=== PATIENT | female | born 1980 | race Caucasian/White ===

== ENCOUNTER 2018-07-03 16:22 | Outpatient (CLI) | payer OTHER, SELFPAY ==
[2018-07-03 18:21] LABS: TSH (W/Ref FT4) 0.85 uIU/mL (0.358-3.74)
[2018-07-03 20:52] LABS: *AMPHETAMINES SCREEN URINE Negative (Negative); *BARBITURATES SCREEN URINE Negative (Negative); *BENZODIAZEPINES SCREEN URINE Negative (Negative); Cannabinoids THC Negative (Negative); Cocaine Screen,Urine Negative (Negative); METHADONE URINE SCREEN Negative (Negative); OPIATES URINE SCREEN Negative (Negative)
[2018-07-03 20:59] LABS: Tricyclic Antidepressants Negative (Negative)
[2018-07-05 16:26] LABS: Chlamydia Result Negative; GC Result Negative; Specimen Description CERVIX
[2018-07-08 09:09] LABS: Buprenorphine Negative; Norbuprenorphine Negative
== END 2018-07-03 16:42 ==
PROVIDERS: PCP Family Medicine; Visit Provider Advanced Practice Midwife
DX: Z34.91 Encounter for supervision of normal pregnancy, unspecified, first trimester (principal); Z11.3 Encounter for screening for infections with a predominantly sexual mode of transmission
CPT/HCPCS: 36415; 80307; 87491; 87591; 84443; 87086

== ENCOUNTER 2018-08-19 08:59 | Outpatient (CLI) | payer OTHER, SELFPAY ==
[2018-08-22 11:16] LABS: AFP 42.5 ng/mL; Cigarette smoking status non-smoker; GA used in risk estimate Scan estimate; INHIBIN 747 pg/mL; IVF Pregnancy No; Initial or repeat testing Initial testing; Insulin dependent diabetes No; Maternal Weight 143 lbs; Number of Fetuses 1; Physician Phone Number 802-748-7300; Prev Down(T21)/Trisomy Pregnan No; Prev Pregnancy w/NTD No; hCG, TOTAL 105.4 IU/mL; hCG, TOTAL MoM 4.26 MoM; uE3 1.56 ng/mL; uE3 MoM 1.24 MoM
[2018-08-29 05:27] LABS: Result Summary NEGATIVE; Specimen WB Whole Blood
== END 2018-08-19 09:19 ==
PROVIDERS: PCP Family Medicine; Visit Provider Obstetrics & Gynecology
DX: Z34.91 Encounter for supervision of normal pregnancy, unspecified, first trimester (principal); Z13.228 Encounter for screening for other metabolic disorders; Z36.89 Encounter for other specified antenatal screening
CPT/HCPCS: 36415; 81511; 81220

== ENCOUNTER 2018-10-25 00:45 | Outpatient (CLI) | payer OTHER, SELFPAY ==
--- NOTE | 2018-10-25 10:51 | DI.US_ITS ---
SYMPTOM/DIAGNOSIS: GROWTH, PLACENTA LOCATION Z34.90 The examination was carried out according to the usual protocol and reveals polyhydramnios with a four quadrant examination recording a 28.3 cm The fetus is in varying position. A 4-chamber heart is noted. The stomach, bladder and umbilical cord are intact. The cord insertion is unremarkable. The cardiac rate is 147 beats per minute. The estimated weight is 1067 grams which is at the 47th percentile. The age is 27 weeks 3 days. SUMMARY: Polyhydramnios is demonstrated. There is no definite anomaly or evidence of growth retardation. This result was faxed to Dr. Hollins immediately following completion of the examination. Many abnormalities cannot be diagnosed. A normal exam does not exclude a congenital anomaly. Radiology No. [id number] LMP: Exam Date: 10/25/18 [facility] wks days on EDC ([facility]) 01/23/19 Confirmed: HISTORY: GROWTH, PLACENTA LOCATION PREDICTED GESTATIONAL AGE NUMBER 27 +1 weeks with a range of 26 +1 week to 28 +1 weeks. 1 Determined by___1STUS___LMP__XX_HISTORY Info. pertaining to fetus # PLACENTA PRESENTATION Grade II Cephalic___ Anterior___Posterior___ Breech____ Right Left Transverse(head right___ Fundal_XX__Low-lying___Previa___ Transverse(head left___ Varying___X___ BIOMETRY AMNIOTIC FLUID BPD: 70 mm 28 +1 weeks Polyhydramnios HC: 250 mm 27 +1 weeks AC: 233 mm 27 +5 weeks FL: 50 mm 26 +6 weeks AMNIOTIC FLUID INDEX >26 WK CRL: mm weeks Cisterna Magna: mm CI: 84 RUQ:__8.99____LUQ__5.96 Cerebellum: cm EFW: 1067 grams 47% Percentile RLQ:__8.04____LLQ__5.31 Total:_28.3_cms Composite AGE= 27 +3 wks EDC by US___01/21/19 BIOPHYSICAL PROFILE ANATOMY IDENTIFIED SCORE 0/2 Heart: 4-Chamber__XX_Rate:BPM__147___ LVOT: RVOT: Amniotic Fluid(>2cms)____ Stomach:__XX Kidneys:__XX Respirations (>30 secs) Bladder:___XX Post. Fossa: Body Flex/Extension 3 vessel cord:_XX Ventricles: cord insertion:__XX___ Lips:____ Extremity Flex/Extension spinal morphology: Nose: Total Score= Palate: NS=not seen
== END 2018-10-25 01:05 ==
PROVIDERS: PCP Family Medicine; Visit Provider Obstetrics & Gynecology
DX: O40.2XX1 Polyhydramnios, second trimester, fetus 1 (principal); Z34.92 Encounter for supervision of normal pregnancy, unspecified, second trimester
CPT/HCPCS: 76816

== ENCOUNTER 2018-10-31 02:28 | Outpatient (CLI) | payer OTHER, SELFPAY ==
[2018-10-31 08:53] LABS: Abs Immature Grans 0.13 k/cumm (0.0-0.09); Absolute Basophil Count 0.03 k/cumm (0.0-0.2); Absolute Eosinophil Count 0.06 k/cumm (0.0-0.7); Absolute Lymphocyte Count 1.64 k/cumm (1.2-3.4); Absolute Monocyte Count 0.82 k/cumm (0.11-0.7); Absolute Neutrophil Count 7.61 k/cumm (1.2-6.7); Basophils % 0.3; Eosinophils % 0.6; HCT 29.4 % (36.0-46.0); HGB 9.7 g/dL (12.0-15.5); Immature Grans % 1.3; Lymphocytes % 15.9; Mean Corpuscular Hemoglobin 28.9 pg (27.0-33.0); Mean Corpuscular Volume 87.5 fL (80-95); Mean Platelet Volume 9.6 fL (8.0-11.0); Neutrophils % 73.9; Platelet Count 343 x1000/uL (130-400); RBC 3.36 m/cumm (4.00-5.20); RBC Distribution Width 12.8 % (11.7-14.6); White Blood Cell Count 10.29 k/cumm (4.4-10.8)
[2018-10-31 09:07] LABS: Glucose,1 Hr (Glucola) 117 mg/dL (80-140)
[2018-10-31 09:09] LABS: Diff Comment Diff Reviewed; Hypochromasia 2+
[2018-10-31 09:11] LABS: Poikilocytes 1+
[2018-10-31 10:37] LABS: TSH (W/Ref FT4) 2.19 uIU/mL (0.358-3.74)
[2018-11-01 11:49] LABS: Hepatitis B Surface Ag Negative (NEGAT); Hepatitis C Ab w Rflx HCV PCR Negative (NEGAT)
[2018-11-01 11:53] LABS: HIV-1/2 Ag & Ab Screen Negative (NEGAT)
[2018-11-01 12:00] LABS: Rubella IgG Ab (UVM) Positive; Syphilis Serology (RPR) Negative (Negative); Varicella IgG Antibody Positive
== END 2018-10-31 02:48 ==
PROVIDERS: Advanced Practice Midwife; PCP Family Medicine; Visit Provider Obstetrics & Gynecology
DX: Z34.92 Encounter for supervision of normal pregnancy, unspecified, second trimester (principal); Z01.84 Encounter for antibody response examination
CPT/HCPCS: 36415; 80055; 82950; 86787; 86850; 86900; 86901

== ENCOUNTER 2018-12-04 00:47 | Outpatient (CLI) | payer OTHER, SELFPAY ==
--- NOTE | 2018-12-04 15:36 | DI.US_ITS ---
Many abnormalities cannot be diagnosed. A normal exam does not exclude a congenital anomaly. Radiology No. LMP: Exam Date: 12/04/17 [facility] wks days on EDC ([facility]) Confirmed: HISTORY: H/O ABNL QUAD SCREEN, SERIAL GROWTH, 028.0 PREDICTED GESTATIONAL AGE NUMBER 32.6 weeks with a range of 31.6 week to 33.6 weeks. 1 Determined by___1STUS___LMP_X__HISTORY Info. pertaining to fetus # PLACENTA PRESENTATION Grade II-III Cephalic___ Anterior___Posterior___ Breech____ Right Left Transverse(head right___ Fundal__X_Low-lying___Previa___ Transverse(head left___ Varying__X____ BIOMETRY AMNIOTIC FLUID BPD: 84 mm 33.6 weeks HC: 312 mm 34.6 weeks Polyhydramnios AC: 318 mm 35.5 weeks FL: 59 mm 31 weeks AMNIOTIC FLUID INDEX >26 WK CRL: mm weeks Cisterna Magna: mm CI: 79 RUQ:__7.4____LUQ___2.5 Cerebellum: cm EFW: 2375 grams 81st Percentile RLQ:_9.5 LLQ__2.4 Total:____21.8____cms Composite AGE= 33.6 wks EDC by 01/16/19 BIOPHYSICAL PROFILE ANATOMY IDENTIFIED SCORE 0/2 Heart: 4-Chamber___Rate:BPM__135___ LVOT: RVOT: Amniotic Fluid(>2cms)____ Stomach: Kidneys: Respirations (>30 secs) Bladder: Post. Fossa: Body Flex/Extension 3 vessel cord: Ventricles: cord insertion: Lips:____ Extremity Flex/Extension spinal morphology: Nose: Total Score= Palate: NS=not seen OB ultrasound was performed utilizing third trimester protocol. biometry is consistent with a gestational age of 33 weeks 6 days and EDC of 01/16/19. Estimated weight is 2375 grams which is at the 81st percentile for predicted gestational age. Placenta is fundal with no evidence of placenta previa. There is visually mildly increased quantity of amniotic fluid and the JENNIFER is 22. cardiac activity observed at a rate of 135 BPM.
== END 2018-12-04 01:07 ==
PROVIDERS: PCP Family Medicine; Visit Provider Obstetrics & Gynecology Gynecology
DX: O28.0 Abnormal hematological finding on antenatal screening of mother (principal); Z34.93 Encounter for supervision of normal pregnancy, unspecified, third trimester
CPT/HCPCS: 76816

== ENCOUNTER 2018-12-25 16:39 | Outpatient (REF) | payer OTHER, SELFPAY | END 2018-12-25 16:59 | LOC: LBN 16:39 | PROVIDERS: PCP Family Medicine; Visit Provider Obstetrics & Gynecology Gynecology | DX: Z34.93 Encounter for supervision of normal pregnancy, unspecified, third trimester (principal); Z36.85 Encounter for antenatal screening for Streptococcus B | CPT/HCPCS: 87081 ==

== ENCOUNTER 2018-12-26 09:39 | Outpatient (RCR) | payer OTHER, SELFPAY ==
[2018-12-26] MEDS: IRON SUCROSE COMPLEX 200 MG in Normal Saline 100 ML 220 MG IVPB (10:49)
[2018-12-26] MEDS: Normal Saline Flush 10 ML SYR IVP (10:54)
== END 2018-12-26 23:59 | disposition home or self-care (01) ==
LOC: INF 09:39
PROVIDERS: PCP Family Medicine; Visit Provider Obstetrics & Gynecology Gynecology
DX: O99.019 Anemia complicating pregnancy, unspecified trimester (principal)
CPT/HCPCS: 96365; J1756

== ENCOUNTER 2019-01-13 01:20 | Outpatient (RCR) | payer OTHER, SELFPAY ==
[2018-12-30] MEDS: Normal Saline Flush 10 ML SYR IVP (13:11)
[2018-12-30] MEDS: IRON SUCROSE COMPLEX 200 MG in Normal Saline 100 ML 220 MG IVPB (13:11)
[2019-01-07] MEDS: Normal Saline Flush 10 ML SYR IVP (07:21)
[2019-01-07] MEDS: IRON SUCROSE COMPLEX 200 MG in Normal Saline 100 ML 220 MG IVPB (07:21)
[2019-01-13] MEDS: IRON SUCROSE COMPLEX 200 MG in Normal Saline 100 ML 220 MG IVPB (10:41)
[2019-01-13] MEDS: Normal Saline Flush 10 ML SYR IVP (10:42)
[2019-01-13 10:47] LABS: Abs Immature Grans 0.03 k/cumm (0.0-0.09); Absolute Basophil Count 0.02 k/cumm (0.0-0.2); Absolute Eosinophil Count 0.04 k/cumm (0.0-0.7); Absolute Lymphocyte Count 1.75 k/cumm (1.2-3.4); Absolute Monocyte Count 0.58 k/cumm (0.11-0.7); Absolute Neutrophil Count 4.99 k/cumm (1.2-6.7); Basophils % 0.3; Eosinophils % 0.5; HCT 35.7 % (36.0-46.0); HGB 11.3 g/dL (12.0-15.5); Immature Grans % 0.4; Lymphocytes % 23.6; Mean Corp. HGB Concentration 31.7 g/dL (32.0-36.0); Mean Corpuscular Hemoglobin 25.8 pg (27.0-33.0); Mean Corpuscular Volume 81.5 fL (80-95); Mean Platelet Volume 10.7 fL (8.0-11.0); Monocytes % 7.8; Neutrophils % 67.4; RBC 4.38 m/cumm (4.00-5.20); RBC Distribution Width 23.5 % (11.7-14.6); White Blood Cell Count 7.41 k/cumm (4.4-10.8)
[2019-01-13 10:56] LABS: Anion Gap 10.1 mmol/L (3-11); BUN 6 mg/dL (7-18); CO2 21.9 mmol/L (21.0-32.0); CREATININE 0.65 mg/dL (0.55-1.02); Calcium 9.1 mg/dL (8.5-10.1); Chloride 102 mmol/L (98-107); Glucose 136 mg/dL (70-100); Potassium 3.7 mmol/L (3.5-5.1); Sodium 134 mmol/L (136-145)
[2019-01-13 11:03] LABS: Platelet Count 271 x1000/uL (130-400)
[2019-01-13 11:04] LABS: Anisocytosis 2+; Diff Comment RBC Morph Reviewed; Hypochromasia 1+; Microcytosis 1+; Polychromasia Present
== END 2019-01-26 23:59 | disposition home or self-care (01) ==
LOC: INF 01:20
PROVIDERS: PCP Family Medicine; Visit Provider Obstetrics & Gynecology Gynecology
DX: O99.019 Anemia complicating pregnancy, unspecified trimester (principal)
CPT/HCPCS: 36415; 80048; 86850; 86900; 86901; 96365; 85025; J1756

== ENCOUNTER 2019-01-15 06:15 | Inpatient (IN) | payer OTHER, SELFPAY ==
[2019-01-15 06:27] VITALS: BP 125/71; PULSE 108; RESP 20; TEMP 36.6; O2SAT 100
[2019-01-15 06:31] VITALS: BP 125/71; PULSE 108; RESP 20; TEMP 36.6; O2SAT 100
[2019-01-15] MEDS: Lactated Ringers 1,000 ML 125 ML IV ×2 (06:47→08:01)
--- NOTE | 2019-01-15 08:16 | FALL_PTH ---
PATIENT: Margareth Suresh LOC: OBS U#:[id number] AGE/SX: 38/F ROOM: OBS.304 RE01/15/[address]: Catie Wilde : 1980 BED: A DIS: 01/17/2019 SPEC #: [id number] RECD: 01/15/19 12:53 STATUS: RUDY REQ #: [id number] EFREN: 01/15/19 08:[address]: Catie Wilde DEPT: Surgical Specimen RECD BY: Marisol Bird ENTERED: 01/15/19 12:55 SP TYPE: Fall OTHR DR: Mane Boles MD Tissues: 1 - FALLOPIAN TUBE (STERILIZATION) 2 - FALLOPIAN TUBE (STERILIZATION) Procedures: GROSS AND MICRO LEVEL 2 Comments: [id number]
--- NOTE | 2019-01-15 10:15 | ROE_ITS ---
Date of service: 01/15/19 Time of Service: 09:55 Operative Note DATE OF PROCEDURE: 01/15/19 PRE-OP DIAGNOSIS: IUP at 39 weeks. Elective repeat delivery with sterilization POST-OP DIAGNOSIS: same PROCEDURE: Repeat low transverse delivery with bilateral tubal salpingectomy SURGEON: Catie Wilde ASSISTING SURGEON: Francisco Herman ANESTHESIA: spinal ESTIMATED BLOOD LOSS: 600 PATHOLOGY: other (Cord blood to lab) COMPLICATIONS: None Patient was transported to: floor ( center) Patient's condition: stable Implants: None Indications: 39-year-old G4 now P2 female with an estimated date of delivery of 01/20/2019 he was counseled during her about elective planned delivery versus trial of labor she decided on trial of labor and requested tubal sterilization at the time of her surgery. Findings: A viable female infant in the double footling breech position with clear amniotic fluid. weight: 8lbs 4oz. (3755gm) Apgars 9/10 normal placenta, ovaries, and fallopian tubes Procedure Description: Patient was taken to the operating room where she was placed in the sitting position and spinal anesthesia was administered without difficulty she was then placed in the dorsal supine position and a Hamm was placed to gravity drainage. SCDs were in place she received 2 g of Ancef IV prior to skin incision. After an adequate level of anesthesia was obtained and timeout performed scalpel was used to incise the skin along the previous C- section site and the underlying subcutaneous tissue dissected with Bovie electrocautery. At the level of the rectus fascia the fascia was incised and the incision was extended laterally with curved Gibbs scissors. [place] clamps were applied to the superior aspect of the rectus fascia incision and the rectus fascia dissected off of the underlying rectus muscles with combination of blunt technique and Bovie electrocautery. A similar technique was carried out on the inferior aspect of the same incision. Rectus muscles were in the midline and the peritoneum was entered on technique incision extended using blunt technique. Bladder blade was inserted and the vesicouterine peritoneum over the lower uterine segment was incised and the incision extended laterally with the bladder flap created digitally. The bladder blade was then reinserted to retract the bladder away from the operative field scalpel was used to incise the lower uterine segment and the uterine incision was extended bluntly in transverse fashion. The intact amniotic sac was then ruptured with clear amniotic fluid noted The was in double footling breech presentation with sacrum posterior both feet were grasped and with gentle traction the extremities abdomen were delivered the 's position was then changed to sacrum anterior and both swept across the chest and the infant's head was delivered atraumatically. The cord was doubly clamped and cut and the handed off to waiting pediatric team. nurse and delivery with a combination of gentle cord traction and fundal massage. Cord blood was collected. The uterus was exteriorized and cleared of clots and debris's using a laparotomy sponge. There were several segments of the placenta maternal surface that were adherent to endometrium of the anterior fundus. Those were removed with manual sweeping of the endometrium and use of a [employer] curette. Palpation of the endometrial lining after curetting showed it to be smooth without retained placental fragments. The uterine incision was then reapproximated with a running lock suture of 0 Vicryl followed by a second suture of 0 Vicryl hemostasis was achieved in the midline portion with 2 interrupted vertical mattress sutures of 0 Vicryl. The incision was hemostatic at the completion of the procedure. A LigaSure bipolar cautery device was then used to grasp the left fallopian tube at its cornual attachment and subsequently clamp cauterized and transected the fallopian tube. The remaining fallopian tube was then disconnected from the mesosalpinx with a series of contiguous transections after clamping and cauterization. The intact fallopian tube was then passed off of the operative field. A similar technique was carried out on the right fallopian tube. Both sites were noted be hemostatic at the completion of the procedure. The uterine incision and bilateral fallopian tube pedicle sites were hemostatic on inspection. The uterus was then returned to the abdomen and the the tubal and uterine surgery sites were noted to be hemostatic. As was the bladder flap the anterior abdominal wall. There was a 2 cm opening in the rectus fascia on the anterior portion of the incision which was closed with a running suture of 0 Vicryl this was followed by a closure of the rectus fascia with 0 Vicryl extending from the lateral margins and overlapping in the midline. The subcutaneous tissue was then reapproximated with a running suture of 2-0 Vicryl followed by skin closure with a 4-0 Vicryl suture in a subcuticular fashion. The skin was then sealed with skin glue the uterus was massaged for any remaining clots and debris's and the patient was then transported to recovery in the center. All sponge lap needle counts are correct x2.
[2019-01-15] MEDS: Ketorolac 30 MG/ML VIAL IVP ×2 (14:03→20:07)
[2019-01-15] MEDS: Normal Saline Flush 10 ML SYR IV (20:08)
[2019-01-16] MEDS: Ketorolac 30 MG/ML VIAL IVP (01:56)
[2019-01-16] MEDS: oxyCODONE 5 mg/Acetaminophen 325 mg TAB PO (03:17)
[2019-01-16 07:31] LABS: HCT 35.7 % (36.0-46.0); Mean Corp. HGB Concentration 30.8 g/dL (32.0-36.0); Mean Corpuscular Hemoglobin 25.5 pg (27.0-33.0); Mean Corpuscular Volume 82.8 fL (80-95); Mean Platelet Volume 10.5 fL (8.0-11.0); Platelet Count 274 x1000/uL (130-400); RBC 4.31 m/cumm (4.00-5.20); RBC Distribution Width 24.4 % (11.7-14.6); White Blood Cell Count 12.19 k/cumm (4.4-10.8)
[2019-01-16 08:59] VITALS: TEMP 37
[2019-01-16] MEDS: Ibuprofen 600 MG TAB PO ×3 (08:59→20:23)
[2019-01-16] MEDS: Acetaminophen Solution 650 MG/20.3 ML CUP PO ×4 (10:13→23:06)
[2019-01-17] MEDS: Ibuprofen 600 MG TAB PO ×3 (03:08→16:13)
[2019-01-17] MEDS: Acetaminophen Solution 650 MG/20.3 ML CUP PO ×4 (03:10→16:13)
--- NOTE | 2019-01-17 08:08 | W.PM.DS.N ---
Date of service: 01/17/19 Time of Service: 08:08 DS: Diagnosis Discharge Diagnosis (1) Hx of section: Status: Acute (2) Encounter for sterilization: Status: Acute (3) Anemia affecting , antepartum: Status: Acute Asessment and Plan: resolved - pt had iron sucrate infusions prior to delivery Discharge Plan Disposition Patient Disposition: HOME Condition: Good Discharge Details Reason For Visit: REPEAT DELIVERY is, Tubal sterilization Admit Date/Time: 01/15/19 06:15 Admit Provider: Catie Wilde Attending Provider: Catie Wilde [facility] Hospital Course: Admitted the morning of surgery and underwent the elective RC/S and bilateral tubal sterilization. Her infant is named Fela. Her postop course was uncomplicated she was discharged home on postop day 2 successfully breast-feeding. Her pain was controlled with NSAIDs.. Home Meds and New Rx's Prescriptions: No Action prenat.vits,janell,[id number]-[id number]-mfvis tablet 1 tab PO DAILY RF: 0 Venofer 200 mg iron/10 mL solution 200 mg IV QWEEK Qty: 10 RF: 3 ferrous sulfate 325 mg (65 mg iron) tablet 325 mg PO BID RF: 0 ferrous gluconate 236 mg (27 mg iron) Tablet 1 mg PO BID RF: 0 Discharge Instructions Additional Instructions: You will be given a prescription for Percocet that you may fill if the Ibuprofen is not effective. Stand Alone Forms: BC Instructions, BC Discharge Instruc Activity:: Activity as Tolerated Equipment/Supplies:: No Equipment Needed Diet:: As Tolerated Discharge Orders Discharge Orders: Discharge Order (Routine); Ordered 01/17/19 Ordered By: aCtie Wilde Exam Const General: no acute distress (Patient rates her pain a 7 out of 10 using ibuprofen) Nutritional Appearance: average body habitus Orientation: alert and oriented x3 Chest Breast inspection: normal inspection of the breasts Resp Effort & Inspection: normal respiratory effort Auscultation: clear to auscultation bilaterally Cardio Rate: regular rate Heart Sounds: S1 normal and S2 normal GI Palpation: soft (Nontender without guarding rebound or masses) General: deferred Other: Fundus firm at umbilicus. Pfannenstiel skin incision clean dry and intact no ecchymosis.. DS: Data Vitals/I&O Vitals and I&O: Vital Signs Temperature 98.6 F 01/16/19 08:59 Pulse 108 H 01/15/19 06:31 Pulse Rhythm Regular 01/15/19 06:31 Respiratory Rate 20 01/15/19 06:31 Blood Pressure 125/71 01/15/19 06:31 Pulse Oximetry 100 01/15/19 06:31 Oxygen Delivery Method Room Air 01/15/19 06:31 Oxygen Flow Rate 0 01/15/19 06:31 Pain Level 6 01/17/19 07:54 Labs on day of discharge: Labs from last 24 hours 01/17/19 08:07 WBC Pending RBC Pending Hgb Pending Hct Pending MCV Pending MCH Pending MCHC Pending RDW Pending Plt Count Pending MPV Pending [facility] Medical History Encounter for sterilization (Acute) Anemia affecting , antepartum (Acute) HX: benign breast biopsy (Acute) Previous delivery, antepartum (Acute) [place] teeth extracted (Acute) Surgical History Hx of section (Acute 06/25/18) H/O dilation and curettage (Acute) Social History Smoking/Tobacco Use Status: Never Second Hand Exposure: No Alcohol Intake: current Details: 2-4 /month Drug use: Never Substance use type: does not use Household members: spouse, children and other Details: Kathrin Tsang, Son Sebastián, daughter Fela. 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
--- NOTE | 2019-01-17 08:12 | DSE_ITS ---
Date of service: 01/17/19 Time of Service: 08:08 DS: Diagnosis Discharge Diagnosis (1) Hx of section: Status: Acute (2) Encounter for sterilization: Status: Acute (3) Anemia affecting , antepartum: Status: Acute Asessment and Plan: resolved - pt had iron sucrate infusions prior to delivery Discharge Plan Disposition Patient Disposition: HOME Condition: Good Discharge Details Reason For Visit: REPEAT DELIVERY is, Tubal sterilization Admit Date/Time: 01/15/19 06:15 Admit Provider: Catie Wilde Attending Provider: Catie Wilde [facility] Course: Admitted the morning of surgery and underwent the elective RC/S and bilateral tubal sterilization. Her infant is named Fela. Her postop course was un complicated she was discharged home on postop day 2 successfully breast-feeding. Her pain was controlled with NSAIDs.. Home Meds and New Rx's Prescriptions: No Action prenat.vits,janell,yio-euyv-onmru tablet 1 tab PO DAILY RF: 0 Venofer 200 mg iron/10 mL solution 200 mg IV QWEEK Qty: 10 RF: 3 ferrous sulfate 325 mg (65 mg iron) tablet 325 mg PO BID RF: 0 ferrous gluconate 236 mg (27 mg iron) Tablet 1 mg PO BID RF: 0 Discharge Instructions Additional Instructions: You will be given a prescription for Percocet that you may fill if the Ibuprofen is not effective. Stand Alone Forms: BC Instructions, BC Discharge Instruc Activity:: Activity as Tolerated Equipment/Supplies:: No Equipment Needed Diet:: As Tolerated Discharge Orders Discharge Orders: Discharge Order (Routine); Ordered 01/17/19 Ordered By: Catie Wilde Exam Const General: no acute distress (Patient rates her pain a 7 out of 10 using i buprofen) Nutritional Appearance: average body habitus Orientation: alert and oriented x3 Chest Breast inspection: normal inspection of the breasts Resp Effort & Inspection: normal respiratory effort Auscultation: clear to auscultation bilaterally Cardio Rate: regular rate Heart Sounds: S1 normal and S2 normal GI Palpation: soft (Nontender without guarding rebound or masses) General: deferred Other: Fundus firm at umbilicus. Pfannenstiel skin incision clean dry and intact no ecchymosis.. DS: Data Vitals/I&O Vitals and I&O: Vital Signs Temperature 98.6 F 01/16/19 08:59 Pulse 108 H 01/15/19 06:31 Pulse Rhythm Regular 01/15/19 06:31 Respiratory Rate 20 01/15/19 06:31 Blood Pressure 125/71 01/15/19 06:31 Pulse Oximetry 100 01/15/19 06:31 Oxygen Delivery Method Room Air 01/15/19 06:31 Oxygen Flow Rate 0 01/15/19 06:31 Pain Level 6 01/17/19 07:54 Labs on day of discharge: Labs from last 24 hours 01/17/19 08:07 WBC Pending RBC Pending Hgb Pending Hct Pending MCV Pending MCH Pending MCHC Pending RDW Pending Plt Count Pending MPV Pending PFSH Medical History Encounter for sterilization (Acute) Anemia affecting , antepartum (Acute) HX: benign breast biopsy (Acute) Previous delivery, antepartum (Acute) [place] teeth extracted (Acute) Surgical History Hx of section (Acute 06/25/18) H/O dilation and curettage (Acute) Social History Smoking/Tobacco Use Status: Never Second Hand Exposure: No Alcohol Intake: current Details: 2-4 /month Drug use: Never Substance use type: does not use Household members: spouse, children and other Details: Kathrin Tsang, Son Sebastián, daughter Fela. 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
[2019-01-17 11:55] LABS: HGB 10.7 g/dL (12.0-15.5); Mean Corp. HGB Concentration 31.5 g/dL (32.0-36.0); Mean Corpuscular Volume 82.7 fL (80-95); Mean Platelet Volume 9.8 fL (8.0-11.0); Platelet Count 284 x1000/uL (130-400); RBC 4.11 m/cumm (4.00-5.20); RBC Distribution Width 24.8 % (11.7-14.6); White Blood Cell Count 8.42 k/cumm (4.4-10.8)
[2019-01-17 12:13] LABS: ALT 33 U/L (12-78); AST 47 U/L (15-37); Alkaline Phosphatase 203 U/L (46-116); Anion Gap 6.6 mmol/L (3-11); BUN 15 mg/dL (7-18); Bilirubin, Total 0.3 mg/dL (0.2-1.0); CO2 26.4 mmol/L (21.0-32.0); CREATININE 0.71 mg/dL (0.55-1.02); Calcium 9.1 mg/dL (8.5-10.1); Chloride 106 mmol/L (98-107); Glucose 89 mg/dL (70-100); Potassium 4.3 mmol/L (3.5-5.1); Sodium 139 mmol/L (136-145); Total Protein 5.9 g/dL (6.4-8.2)
== END 2019-01-17 16:45 | disposition home or self-care (01) | DRG 785 ==
LOC: PDS 06:16 → OBS 09:02
PROVIDERS: Admitting Provider Obstetrics & Gynecology Gynecology; PCP Family Medicine; Visit Provider Obstetrics & Gynecology Gynecology
PROC: 10D00Z1 Extraction of Products of Conception, Low, Open Approach (ICD-10-PCS; CPT 59514; principal; 2019-01-15 07:30)
PROC: 10D00Z1 Extraction of Products of Conception, Low, Open Approach (ICD-10-PCS; CPT 58661; 2019-01-15 07:30)
DX: O34.211 Maternal care for low transverse scar from previous cesarean delivery (principal); O32.8XX0 Maternal care for other malpresentation of fetus, not applicable or unspecified; Z30.2 Encounter for sterilization; Z37.0 Single live birth; O99.824 Streptococcus B carrier state complicating childbirth; O90.89 Other complications of the puerperium, not elsewhere classified; H53.8 Other visual disturbances; Z3A.38 38 weeks gestation of pregnancy
CPT/HCPCS: 59514; 58611; 36415; 80053; 85027; NC; 88302; J0131; J0690; J1100; J1885; J2405; J2765; J3010; J3490

== ENCOUNTER 2021-05-10 04:03 | Outpatient (CLI) | payer OTHER, SELFPAY ==
[2021-05-10 10:51] LABS: Hemoglobin A1C 5.3 % (<5.7)
[2021-05-10 11:20] LABS: ALT 30 U/L (14-59); AST 21 U/L (15-37); Albumin 4.1 g/dL (3.4-5.0); Alkaline Phosphatase 48 U/L (46-116); Anion Gap 10.7 mmol/L (3-11); BUN 8 mg/dL (7-18); Bilirubin, Total 0.4 mg/dL (0.2-1.0); CO2 26.3 mmol/L (21.0-32.0); CREATININE 0.8 mg/dL (0.55-1.02); Calcium 8.9 mg/dL (8.5-10.1); Chloride 105 mmol/L (98-107); Glucose 87 mg/dL (74-106); Potassium 4.3 mmol/L (3.5-5.1); Sodium 142 mmol/L (136-145); Total Protein 7.3 g/dL (6.4-8.2)
[2021-05-11 12:54] LABS: IgA 114 mg/dL (85-499); Interpretation (See Note); Tissue Transglutaminase IgA <1.2 U/mL (<4.0)
[2021-05-11 20:53] LABS: Calculated LDL 115 mg/dL (<100); Cholesterol 204 mg/dL (<200); HDL Cholesterol 66 mg/dL (40-60); Triglyceride 117 mg/dL (<150)
== END 2021-05-10 04:04 | disposition home or self-care (01) ==
LOC: LBO 04:03
PROVIDERS: Surgery; PCP Nurse Practitioner Family; Visit Provider Nurse Practitioner Family
DX: Z00.00 Encounter for general adult medical examination without abnormal findings (principal); Z13.1 Encounter for screening for diabetes mellitus; Z13.220 Encounter for screening for lipoid disorders; R19.7 Diarrhea, unspecified
CPT/HCPCS: 36415; 80053; 80061; 82784; 83516; 83036

== ENCOUNTER 2021-06-01 08:08 | Day surgery (SDC) | payer OTHER, SELFPAY ==
--- NOTE | 2021-06-01 06:41 | W.COLOREPORT ---
Date of service: 06/01/21 Time of Service: 09: Colonoscopy Report Date of procedure: 06/01/21 Pre-op diagnosis general: Diarrhea Post-op diagnosis procedure note: same Procedure: Colonoscopy with biopsies Surgeon: Fidelina Rodriguez Anesthesia Type: General:No Airway (ASA 2/ Sadiq Emery, LEATHA) Estimated blood loss (mL): 3 Pathology: other (randome bx) Complications: None Disposition: same day Indications: Mrs Suresh is a pleasant 40-year-old female with a 1-1/2-year history of loose stools intermittently. She has had no weight loss. She has had no melena or hematochezia. There is a question of celiac disease in her father. Examination today is pretty benign. Differential includes celiac disease, inflammatory bowel disease, irritable bowel syndrome. We discussed the colonoscopy to start the work-up as well as labs test for celiac. Add celiac blood test to her labs today Schedule for colonoscopy under sedation Risks, benefits and complications have been reviewed. Complications include but are not limited to bleeding, pain, perforation, missed small lesion/polyp, sore throat, aspiration and adverse reaction to the medications. Questions were entertained and answered to their satisfaction and they wished to proceed. No guarantees were given or implied. Prep: Miralax/Dulcolax Procedure Start Time: : Procedure End Time: : Retraction Time: 17 minutes Findings: normal appearing intestine Procedure Description: After informed consent was obtained the patient was taken to the procedure room and placed in a left decubitous position. Monitors were applied and a time out was done. The patients name, date of , procedure, allergies to medications and metal in their body was reviewed. The patient was then sedated. Once sedated and comfortable a rectal exam was done. External exam was normal. Internal exam revealed a normal sphincter tone and no palpable masses. The scope was then introduced and retro-flexed. no internal hemorrhoids, polyps or masses were identified on retro-flexion. The scope was then advanced to the cecum without difficulty. The ileocecal vlave and appendiceal orifice were identified. The prep was good. The scope was place into the terminal ileum. The terminal ileum was normal. The scope was then slowly retracted over 17 minutes back into the rectum. There were no polyps. There was no diverticulosis noted. Randome biopsies were done of the terminal ileum and large bowel. The scope was removed and the patient was woken up and taken back to Same day surgery in stable condition. The patient tolerated the procedure well and there were no immediate complications. Follow up: The patient should follow up in 10 years unless they develop changes in bowel habits or other new gastrointestinal complaints.
--- NOTE | 2021-06-01 06:42 | W.PM.DSUDISC ---
Discharge Plan Disposition Patient Disposition: HOME Condition: Good Discharge Details Reason For Visit: Diarrhea Attending Provider: Fidelina Rodriguez Primary Care Provider: Jeff Levine Home Meds and New Rx's Prescriptions: Continued citalopram 20 mg tablet 20 mg PO DAILY Qty: 60 RF: 6 Discharge Instructions Additional Instructions: Findings: normal appearing large bowel Randome biopsies were done Follow up: 10 years for next colonoscopy. I will send a letter with results. Please call if you develop: fevers >101.5 Nausea or Vomiting Abdominal pain that is not transient Rectal bleeding that is more then a tbsp A hard abdomen and inability to pass gas DAY SURGERY UNIT POST ENDOSCOPY INSTRUCTIONS Instructions for everyone who is given Anesthesia: For your safety, please do the following for the next 24 Hours: a. Do not drive or operate dangerous equipment b. Do not drink alcohol beverages or use any recreational drugs for the first 24 hours or while taking pain medications. The medications in your body may have a reaction that can be dangerous. c. Do not make any important decisions or sign any important papers 1. Generally there are no restrictions on your activity after a day or so has gone by, but you may feel a bit fatigued for a few days. 2. After you arrive home you may have a light meal and return to a normal diet as you can tolerate it without feeling sick to your stomach. 3. After surgery, you may feel pain or discomfort. This should be only transient, but if it persists please contact your doctor. 4. If there are any questions regarding the findings of your procedure, please feel free to contact your doctor. 6. If you are unable to contact your doctor with a problem, contact the hospital at [phone]. 7. Continue all your regular medications unless directed otherwise. I understand the above instructions and have no questions. Signature of Patient or Responsible Adult Escort Date/Time Name of Responsible Adult Escort Signature of Nurse Date/Time Activity:: Activity as Tolerated Diet:: As Tolerated Discharge Orders Discharge Orders: Discharge Order (Routine); Ordered 06/01/21 Ordered By: Fidelina Rodriguez
[2021-06-01 08:17] VITALS: BP 106/72; PULSE 88; RESP 16; TEMP 36.2; O2SAT 98
[2021-06-01] MEDS: Lactated Ringers 1,000 ML 80 ML IV (08:40)
--- NOTE | 2021-06-01 09:04 | ANES.PREOP_ITS ---
General Info Date of Service Date Performed: 06/01/21 Height: 4 ft 11 in Weight: 69.9 kg Body Mass Index (BMI): 31.1 Surgical Procedure: Operation Date: 06/01/21 09:05 Proposed Procedures Side Surgeon p Ian Rodriguez MD Meds Allergies and Home Medications Allergies Allergy/AdvReac Type Severity Reaction Status Date / Time amoxicillin AdvReac Mild NAUSEA Verified 06/01/21 08:16 tetracycline AdvReac Mild NAUSEA Verified 06/01/21 08:16 Penicillins AdvReac Unknown NAUSEA Verified 06/01/21 08:16 Home Medication Medication Instructions Recorded citalopram 20 mg tablet 20 mg PO DAILY #60 tab 12/06/20 Current Visit Medications: Current Medications Generic Name Dose Route Start Last Admin Trade Name Freq PRN Reason Stop Dose Admin Hyoscyamine Sulfate 0.125 mg 06/01/21 06:42 Hyoscyamine 0.125 Mg Sl/Oral/Chew SL DIRECTED PRN Ringer's Solution 1,000 mls @ 80 mls/hr 06/01/21 06:00 06/01/21 08:40 IV 06/30/21 23:59 80 mls/hr INFUSION ISAIAH Administration IV Miscellaneous Supplies 1 each 06/01/21 06:00 Iv Access IV 06/30/21 23:59 DIRECTED ISAIAH Ondansetron HCl 4 mg 06/01/21 06:42 Ondansetron 4 Mg/2 Ml Vial IVP Q4H PRN PRN Nausea / Vomiting Sodium Chloride 0 ml 06/01/21 06:00 Normal Saline Flush 10 Ml Syr IV 06/30/21 23:59 PRN PRN Sodium Chloride 0 ml 06/01/21 06:00 Normal Saline 10 Ml Vial IJ 06/30/21 23:59 DIRECTED PRN Sterile Water 0 ml 06/01/21 06:00 Water,Injection,Sterile 10 Ml Vial IJ 06/30/21 23:59 DIRECTED PRN PFSH Active Problems Active Problems: Problem Status Onset Code Diarrhea R19.7 depression O99.345, F53.0 Varicose vein of leg I83.90 HX: benign breast biopsy Z98.890 Depressive disorder F32.9 Medical History Medical History Anemia affecting , antepartum 12/25/2018 office hemoglobin 8.1. Will offer patient weekly IV sucrose infusion. Encounter for sterilization 01/15/2019-bilateral salpingectomy at the time of HX: benign breast biopsy depression 10/2019. Rx citalopram 20 mg/day. 03/2020 remains on 20 mg/day dose Surgical History Surgical History H/O dilation and curettage 2007 SAB. 2012 Blighted ovum. Partial molar . No sequelae. Hx of section (06/25/18) 2010 arrest of descent. M. 01/15/2019 elective scheduled repeat and bilateral salpingectomy [place] teeth extracted Tobacco Smoking/Tobacco Use Status: Never Passive smoking exposure: No Second hand exposure: No Alcohol Alcohol Intake: current Alcohol intake frequency: a few times a week Alcohol type: wine Details: 2-4 /month Substance Use Substance use: Never Substance use type: does not use Prental History History 4 Para 1 Hx # Term Pregnancies 1 Multiple births 0 Hx # Pregnancies 0 Ectopic pregnancies 0 AB induced Hx Number of Living Children 1 AB spontaneous 2 Past Pregnancies Del. Date GA/Weeks # Outcome Route Wgt Sex Labor Lgth Anesthes ia Location Prov Complic 01/15/19 38 No Successful 3742.137 g Female Catie Leighcandace Delivery Date: 01/15/19 elective scheduled repeat delivery with tubal sterilization. Daughter is named Fela. AndryCatie Vital Signs and Lab Results Vital Signs Most Recent Vital Signs in EMR: Most Recent Vital Signs Temp Pulse Resp BP Pulse Ox 36.2 C L 88 16 106/72 98 06/01/21 08:17 06/01/21 08:17 06/01/21 08:17 06/01/21 08:17 06/01/21 08:17 Lab Results Blood Type / Crossmatch: No Data to Display Complete Blood Count: No Data to Display Complete Metabolic Panel: Sodium Level 142 mmol/L (136-145) 05/10/21 09:45 05/10/21 Potassium Level 4.3 mmol/L (3.5-5.1) 05/10/21 09:45 05/10/21 Chloride Level 105 mmol/L (98-107) 05/10/21 09:45 05/10/21 Carbon Dioxide Level 26.3 mmol/L (21.0-32.0) 05/10/21 09:45 05/10/21 Blood Urea Nitrogen 8 mg/dL (7-18) 05/10/21 09:45 05/10/21 Creatinine 0.8 mg/dL (0.55-1.02) 05/10/21 09:45 05/10/21 Estimated GFR/1.73 m2 >= 60.00 (mL/min/1.73m2) 05/10/21 09:45 05/10/21 Calcium Level 8.9 mg/dL (8.5-10.1) 05/10/21 09:45 05/10/21 Albumin 4.1 g/dL (3.4-5.0) 05/10/21 09:45 05/10/21 Glucose Level 87 mg/dL (74-106) 05/10/21 09:45 05/10/21 Hemoglobin A1c 5.3 % (<5.7) 05/10/21 09:45 05/10/21 Liver Function Panel: Alanine Aminotransferase (ALT/SGPT) 30 U/L (14-59) 05/10/21 09:45 05/10/21 Aspartate Amino Transf (AST/SGOT) 21 U/L (15-37) 05/10/21 09:45 05/10/21 Coagulation Panel: No Data to Display Cardiac Panel: No Data to Display Arterial Blood Gas: No Data to Display Venous Blood Gas: No Data to Display Pancreas Panel: No Data to Display Thyroid Panel: No Data to Display Infectious Disease: No Data to Display Blood Cultures: No Data to Display Toxicology Panel: No Data to Display Panel: No Data to Display Anesthesia Assessment and Plan Anesthesia History Personal History: No History of Anesthesia Complications Family History: No Family History of Anesthesia Complications Exercise Tolerance Exercise Tolerance: Metabolic Equivalents>4 Pertinent Negatives Pertinent Negatives: No Symptoms of GERD, No Major Cardiovascular Symptoms or Complaints, No Major Pulmonary Symptoms or Complaints and No History of CVA/TIA Cardiac & Pulmonary Exam Cardiac Exam: Normal S1/S2 Heart Sounds Pulmonary Exam: Clear Bilateral Breath Sounds Airway Exam Known Difficult Airway: No Mallampati Class: 2 Mouth Opening: Normal (> 3cm) Thyromental Distance: Greater than 3 cm Neck Range of Motion: Full ROM Neck Circumference: Normal Teeth Condition: Normal Dentition ASA Classification ASA Score: ASA 2 Emergency Case?: No NPO Status NPO Status: NPO Clears >2 hours, Solids >8 hours Status Status: Negative HCG Anesthesia Plan Resuscitation Status: Full Code Anesthesia Technique: General Anesthesia Airway Planned: Natural Airway Monitors Used: Standard Monitors
[2021-06-01 09:07] VITALS: BMI 31.1
--- NOTE | 2021-06-01 09:28 | BOWEL_PTH ---
PATIENT: Margareth Suresh LOC: [facility] U#:[id number] AGE/SX: 40/F ROOM: RE06/01/[address]: Fidelina Rodriguez MD : 1980 BED: DIS: 06/01/2021 SPEC #: [id number] RECD: 06/01/21 12:58 STATUS: RUDY REQ #: [id number] EFREN: 06/01/21 09:[address]: Fidelina Rodriguez DEPT: Surgical Specimen RECD BY: Marisol Bird ENTERED: 06/01/21 13:00 SP TYPE: Bowel OTHR DR: Jeff Levine, [employer] Tissues: 1 - BIOPSY BOWEL 2 - BIOPSY BOWEL 3 - BIOPSY BOWEL 4 - BIOPSY BOWEL 5 - BIOPSY BOWEL Procedures: GROSS AND MICRO LEVEL 4 Comments: [id number]
[2021-06-01 09:58] VITALS: BP 106/74; PULSE 69; RESP 14; TEMP 36.3; O2SAT 99
--- NOTE | 2021-06-01 09:58 | W.ANESPOSTOP ---
Postoperative Evaluation Date, Time and Location Date Performed: 06/01/21 Time Performed: 09:58 Patient Location: Day Surgery Unit Vital Signs Most Recent Imported Vital Signs: Most Recent Vital Signs Temp Pulse Resp BP Pulse Ox 36.2 C L 88 16 106/72 98 06/01/21 08:17 06/01/21 08:17 06/01/21 08:17 06/01/21 08:17 06/01/21 08:17 Most Recent Manually Entered Vital Signs: Adult Blood Pressure: 106/74 Heart Rate: 68 Respirations: 12 Oxygen Saturation (%): 99 Temperature (C): 36.3 C Pain Score (0-10 Scale): 0 Pain Score Most Recent Pain Score: Most Recent Pain Score Pain Level 0 06/01/21 08:17 Assessment Mental Status: Awake (Alert & Oriented to Patient Baseline) Airway and Respiratory Function: Patent airway with normal (patient baseline) respiratory exam Cardiovascular Function: Hemodynamically Stable Hydration Status: Adequately Hydrated Nausea & Vomiting: No Nausea or Vomiting Pain: Pt. Denies Any Pain Peripheral Nerve Block: Patient did not receive a nerve block
[2021-06-01 09:59] VITALS: BP 106/74; PULSE 68; RESP 12; TEMPC 36.3; O2SAT 99
[2021-06-01 10:25] VITALS: BP 112/72; PULSE 63; RESP 16; TEMP 36.1; O2SAT 100
== END 2021-06-01 11:06 | disposition home or self-care (01) ==
LOC: SUR 08:08
PROVIDERS: PCP Nurse Practitioner Family; Visit Provider Surgery
PROC: 0DJD8ZZ Inspection of Lower Intestinal Tract, Via Natural or Artificial Opening Endoscopic (ICD-10-PCS; CPT 45378; principal; 2021-06-01 09:00)
DX: R19.7 Diarrhea, unspecified (principal)
CPT/HCPCS: 45380; 81025; 88305; J2001

== ENCOUNTER 2021-06-03 10:20 | Outpatient (REF) | payer OTHER, SELFPAY ==
--- NOTE | 2021-06-03 09:50 | PAPFT_PTH ---
PATIENT: Margareth Suresh LOC: [facility] U#:[id number] AGE/SX: 40/F ROOM: RE06/03/[address]: Jeff Levine NP : 1980 BED: DIS: 06/03/2021 SPEC #: [id number] RECD: 06/03/21 17:07 STATUS: RUDY RETha #: [id number] EFREN: 06/03/21 09:[address]: Jeff Levine DEPT: [facility] Cytology RECD BY: Yasmin Deutsch Tissues: 1 - CX/ENDOCX FOR PAP SMEARS Procedures: PAP THIN PREP/UVM Screening HPV DNA PROBE Comments: [id number]
== END 2021-06-03 10:21 | disposition home or self-care (01) ==
LOC: LBN 10:20
PROVIDERS: PCP Nurse Practitioner Family; Visit Provider Nurse Practitioner Family
DX: Z12.4 Encounter for screening for malignant neoplasm of cervix (principal); Z11.51 Encounter for screening for human papillomavirus (HPV)
CPT/HCPCS: 88142; 87624

== ENCOUNTER 2022-05-10 03:00 | Outpatient (CLI) | payer OTHER, SELFPAY | END 2022-05-10 03:01 | disposition home or self-care (01) | PROVIDERS: PCP Nurse Practitioner Family; Visit Provider Nurse Practitioner Family | DX: R63.5 Abnormal weight gain (principal) | CPT/HCPCS: 36415; 84439; 84443 ==

== ENCOUNTER 2023-04-02 14:51 | Outpatient (CLI) | payer OTHER, SELFPAY ==
--- NOTE | 2023-04-02 14:45 | DI.RAD_ITS ---
Exam(s) XR WRIST RT COMPLETE EXAM: XR WRIST RT COMPLETE CLINICAL HISTORY: eval R wrist pain. TECHNIQUE: 2D digital imaging was performed of the right wrist. Three views were obtained. PA, lat eral and oblique views were obtained. COMPARISON: No exams were available for comparison FINDINGS: BONES: No acute fracture is present. No bony destructive lesion is seen. JOINTS: The carpal bones are normally aligned. SOFT TISSUE: Normal. IMPRESSION: Unremarkable radiographs of the right wrist. DATA REPOSITORY: RADIATION DOSE DELIVERED:
== END 2023-04-02 14:52 | disposition home or self-care (01) ==
LOC: DIORS 14:52
PROVIDERS: PCP Nurse Practitioner Family; Referring Provider Nurse Practitioner Family; Visit Provider Student in an Organized Health Care Education/Training Program
DX: M25.531 Pain in right wrist (principal)
CPT/HCPCS: 73110

== ENCOUNTER 2024-05-16 01:08 | Outpatient (CLI) | payer OTHER, SELFPAY ==
[2024-05-16 12:28] LABS: HCT 39.6 % (36.0-46.0); HGB 13.1 g/dL (11.2-15.7); MCH 30.3 pg (27.0-33.0); MCHC 33.1 % (32.0-36.0); MCV 92 fL (80-95); MPV 9.6 fL (8.0-11.0); Platelet Count 292 10^3/uL (130-400); RBC 4.33 10^6/uL (3.93-5.22); RDW 12.5 % (11.7-14.6); RDW-SD 41.8 fL; WBC 6.45 10^3/uL (4.4-10.8)
[2024-05-16 12:53] LABS: ALT 21 U/L (14-59); AST 15 U/L (15-37); Alkaline Phosphatase 49 U/L (46-116); Anion Gap 7.7 mmol/L (3-11); BUN 13 mg/dL (7-18); Bilirubin, Total 0.54 mg/dL (0.2-1.0); CO2 30.3 mmol/L (21.0-32.0); CREATININE 0.9 mg/dL (0.55-1.02); Chloride 103 mmol/L (98-107); Estimated GFR 81.35 (mL/min/1.73m2); Glucose 66 mg/dL (74-106); Potassium 4.1 mmol/L (3.5-5.1); Sodium 141 mmol/L (136-145); TSH (W/Ref FT4) 1.52 uIU/mL (0.36-3.74); Total Protein 7.4 g/dL (6.4-8.2)
== END 2024-05-16 01:09 | disposition home or self-care (01) ==
LOC: LOS 01:08
PROVIDERS: PCP Nurse Practitioner Family; Visit Provider Nurse Practitioner Family
DX: R06.02 Shortness of breath (principal)
CPT/HCPCS: 36415; 80053; 85027; 84443

== ENCOUNTER → 2024-05-29 05:34 | Outpatient (CLI) | payer OTHER, SELFPAY ==
--- NOTE | 2024-05-29 08:15 | ETT_ITS ---
APPROVED REPORT Exam: Exercise Treadmill Patient Location: Out-Patient Room/Bed: Stress Nurse: Renita Longoria RN Ordering Provider:ASHELY PELAYO, Contact Number: [phone] BMI: 30.07 Baseline Rhythm: Sinus Rhythm Indications: SOB on exertion Medical History Medical History: SOB, depression Cardiac Medications: Citalopram Allergies: Amoxicillin, tetracylcine, penicillins Cardiac Risk Factors: Family hx Previous Cardiac Procedures: None Pretest Chest Pain Characteristics: None Exercise History: Physically active Physical Disabilities: None Lung Sounds: Clear to auscultation Heart Sounds: Regular Stress Test Details Test: Exercise stress testing was performed using a Wilbur protocol. Rest Stress HR Resting HR Supine: 79 bpm Max Heart Rate (APMHR): 177 bpm Resting HR Standin bpm Target HR (85% APMHR): 150 bpm Max HR Achieved: 160 bpm % of APMHR: 90 Recovery HR: 94 bpm HR response to stress: Normal HR response to stress BP Resting BP Supine: 114/72 mmHg Resting BP Standin/70 mmHg Max BP: 158/70 mmHg Recovery BP: 110/70 mmHg BP response to stress: Normal blood pressure response to stress. ECG Resting ECG: Sinus Rhythm Ectopy: None Stress ECG: Sinus Tachycardia ST Change: No significant ST segment changes noted Arrhythmia: Rare PVC Recovery ECG: Sinus Rhythm Recovery ST Change: No significant ST segment changes noted Recovery Arrhythmia: None Clinical Reason for Termination: Fatigue, Target HR Achieved Stress Symptoms: General Fatigue Exercise duration: 07 min33 sec Highest Stage Reached: Stage 3: 3.4 mph at 14% grade. Exercise capacity: 9.46 METs Angina Score: None Hassan Treadmill Score: 7.5 Rate Pressure Product: 15770 Stress ECG Conclusion 1. Resting electrocardiogram was normal 2. Patient exercised on the Wilbur protocol completed workload of 9.46 METS limited by fatigue 3. Normal heart rate and blood pressure response to exercise. The patient achieved 90% of predicted heart rate for age 4. There was no electrocardiographic evidence of myocardial ischemia 5. There were no dysrhythmias Hassan Treadmill Score is 7.5 which is Low risk. Stress Test Summary STAGE Time (mins) Speed (mph) Grade (%) HR BP SpO2 SYMPTOMS METS Supine 79 114/72 96% Standing 84 108/70 1 3 1.7 10 140 158/70 94% 4.5 2 6 2.5 12 148 106/68 7 3 9 3.4 14 158 10 1 min recovery 124 150/68 97% 3 min recovery 95 130/62 6 min recovery 94 110/70 97%
== END ==
PROVIDERS: PCP Nurse Practitioner Family; Visit Provider Nurse Practitioner Family
DX: R06.02 Shortness of breath (principal)
CPT/HCPCS: 93017

== ENCOUNTER 2025-07-05 00:18 | Observation (INO) | payer OTHER, SELFPAY ==
[2025-07-05] VITALS (14 sets, daily range): BP systolic 99–122; BP diastolic 45–78; PULSE 54–74; RESP 14–24; TEMP 35.7–36.9; O2SAT 96–100; BMI 32.1
--- NOTE | 2025-07-05 00:15 | RT.EKG_ITS ---
APPROVED REPORT Exam: Resting ECG Reason for Exam: chest pain Patient Location: E HR:67 bpm ECG Measurements Heart Rate 67 AXIS OR 175 P 73 QRSd 69 QRS 61 QT 380 T 57 QTc 402 Conclusion Sinus rhythm...normal P axis, V-rate 60- 99 I have reviewed and interpreted ECG and agree with software generated interpretation.
[2025-07-05 00:47] LABS: Abs Immature Grans 0.06 10^3/uL (0.0-0.06); HCT 40.2 % (36.0-46.0); HGB 13.5 g/dL (11.2-15.7); Immature Grans % 0.4 %; MCH 29.3 pg (27.0-33.0); MCHC 33.6 % (32.0-36.0); MCV 87 fL (80-95); MPV 9.4 fL (8.0-11.0); Platelet Count 284 10^3/uL (130-400); RBC 4.61 10^6/uL (3.93-5.22); RDW 12.2 % (11.7-14.6); RDW-SD 39.1 fL; WBC 16.10 10^3/uL (4.4-10.8)
[2025-07-05 01:08] LABS: ALT 55 U/L (14-59); AST 77 U/L (15-37); Albumin 4.5 g/dL (3.4-5.0); Alkaline Phosphatase 64 U/L (46-116); Anion Gap 9.2 mmol/L (3-11); BUN 13 mg/dL (7-18); Bilirubin, Total 0.5 mg/dL (0.2-1.0); CO2 28.8 mmol/L (21.0-32.0); Calcium 9.5 mg/dL (8.5-10.1); Chloride 98 mmol/L (98-107); Estimated GFR 71.24 (mL/min/1.73m2); Glucose 131 mg/dL (74-106); Potassium 3.4 mmol/L (3.5-5.1); Sodium 136 mmol/L (136-145); Total Protein 8.3 g/dL (6.4-8.2)
[2025-07-05] MEDS: Lidocaine 5% Patch 2 PATCH TP (01:09)
[2025-07-05 01:23] LABS: Troponin I < 4 ng/L (<or=51)
--- NOTE | 2025-07-05 01:30 | DI.CT_ITS ---
Exam(s) CT CHEST/ABD/PEL W EXAM: CT CHEST/ABD/PEL W CLINICAL HISTORY: right chest and abdominal/flank pain. TECHNIQUE: Imaging Protocol: Axial computed tomography images with coronal and sagittal reformatted images were created and reviewed. Computer aided detection (CAD) was utilized. CONTRAST MATERIAL: Intravenous: Omnipaque 350 Contrast volume:75 ml Oral: / no COMPARISON: CT ABD PELVIS WITH CONTRAST from 09/25/2014 FINDINGS: CHEST: Pulmonary parenchyma: No consolidation. No dominant measurable mass. Lingular atelectasis. Scattered calcified granulomas. Tracheobronchial tree: No bronchiectasis. No mucous plugging.No bronchial wall thickening. Pleura: No effusion or pneumothorax. Mediastinum: Within normal limits. Pulmonary arteries: No visible emboli. Cardiovascular: No pericardial effusion. Thoracic aorta non-dilated. Bones: Unremarkable for age. No lytic or blastic lesions. No compression fractures. Soft tissues: Unremarkable. ABDOMEN and PELVIS: Liver: Normal density. No suspicious mass. Gallbladder and biliary tract: The gallbladder appears distended. There are several stones. No definite wall thickening. No biliary dilatation. No visible common duct stones. Pancreas: Normal density, no abnormal calcifications or inflammatory process. Spleen: Normal. Kidneys: Normal size, contour and axis. No radiodense stones. No obstructive uropathy. No suspicious masses seen. Adrenal glands: No masses seen. Aorta: Abdominal portion non-dilated. Lymph nodes: Within normal limits. Soft tissues: Unremarkable. Bladder: Nearly empty but unremarkable. Bowel: No obstruction or bowel wall thickening. The appendix appears normal. There is a normal quantity of stool. Peritoneal cavity: No ascites. No focal collection. No mesenteric inflammatory response. No free air. Bones: Unremarkable for age. Reproductive organs: Unremarkable for age. IMPRESSION: No acute abnormality in the chest. Abnormal distended gallbladder with multiple stones, suspicious for acute cholecystitis. The preliminary [facility] report was reviewed. RADIATION DOSE DELIVERED: Total DLP DATA REPOSITORY: All CT scans at this facility are submitted to the National Radiology Data Registry (NRDR) Dose Index Registry (DIR) with the [employer] [place] [employer] ([employer]). RADIATION OPTIMIZATION: All CT scans at this facility use at least one of these dose optimization techniques: automated exposure control; mA and/or kV adjustment per patient size (includes targeted exams where dose is matched to clinical indication); or iterative reconstruction.
[2025-07-05] MEDS: Ondansetron 4 MG/2 ML VIAL IVP (01:31)
[2025-07-05] MEDS: ACETAMINOPHEN 1,000 MG/100 ML BAG 400 MG IVPB (01:32)
[2025-07-05 01:47] LABS: Glucose Negative (Negative)
[2025-07-05] MEDS: Normal Saline Flush 10 ML SYR IVP (02:39)
[2025-07-05] MEDS: Normal Saline - Diluent 50 ML VIAL IJ (02:39)
[2025-07-05] MEDS: Omnipaque 350 MG/ML 100 ML BTL IJ (02:40)
--- NOTE | 2025-07-05 02:43 | ED.GENADUL_ITS ---
Discharge Plan Disposition Patient Disposition: Admit to [facility] Condition: Good Discharge Details Clinical Impression: Acute cholecystitis Primary Care Provider: Jeff Levine ED Provider: Tay Mckee Home Meds and New Rx's Prescriptions: No Action triamcinolone acetonide 0.1 % cream 1 applic topical BID Qty: 30 2RF citalopram 20 mg tablet See Rx Instructions .ROUTE .COMPLEX Qty: 405 0RF Dose Instruction: TAKE ONE TABLET BY MOUTH DAILY FOR THE FIRST TWO WEEKS OF YOUR MENSTRUAL CYCLE. THEN TAKE TWO TABLETS FOR THE LAST TWO WEEKS OF YOUR MENSTRUAL CCLE Rx Instructions: TAKE ONE TABLET BY MOUTH DAILY FOR THE FIRST TWO WEEKS OF YOUR MENSTRUAL CYCLE. THEN TAKE TWO TABLETS FOR THE LAST TWO WEEKS OF YOUR MENSTRUAL CCLE HPI General Date/Time Provider Initiated Documentation: 07/05/25 00:20 . HPI Narrative: 44-year-old female with no significant past medical history presents today for evaluation of back pain with mild right flank pain. Patient states that for the last 2 to 3 weeks she has been having intermittent mid back pain. It is bilateral. 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 Usually comes on over a few hours and last for a day or so and eventually gets better. It is improved with ibuprofen. Symptoms have continued to come and gone over the last few weeks however starting this evening at around 10 PM she noticed that the pain got significantly worse and she had also developed right flank and side pain. She admits to nausea but denies vomiting. She denies any urinary symptoms of frequency or dysuria. She denies any diarrhea. She denies having symptoms like this in the past. No other complaints at this time. No other modifying factors. Related Data Home Medications ?Medication ?Instructions ?Recorded ?Confirmed citalopram 20 mg tablet See Rx Instructions .Route 1 12/15/23 05/08/25 .COMPLEX #405 tabs triamcinolone acetonide 0.1 % 1 applic topical BID #30 grams 05/08/25 05/08/25 topical cream Previous Rx's ?Medication ?Instructions ?Recorded citalopram 20 mg tablet See Rx Instructions .Route 1 12/15/23 .COMPLEX #405 tabs triamcinolone acetonide 0.1 % 1 applic topical BID #30 grams 05/08/25 topical cream Allergies Allergy/AdvReac Type Severity Reaction Status Date / Time amoxicillin AdvReac Mild NAUSEA Verified 05/08/25 14:46 tetracycline AdvReac Mild NAUSEA Verified 05/08/25 14:46 Penicillins AdvReac Unknown NAUSEA Verified 05/08/25 14:46 General Stated Complaint: Chest Pain COLEEN: 2 Exam Narrative Exam Narrative: 1.Const: Well-nourished, Well-developed, appearing stated age 2.Eyes: PERRL, no conjunctival injection, and symmetrical lids. 3.ENT: Atraumatic external nose and ears. Moist MM. Neck: Symmetric, trachea midline, No thyromegaly. 4.CVS: +S1/S2, Peripheral pulses 2+ and equal in all extremities. Brisk capillary refill in all extremities. 5.RESP: Unlabored respiratory effort. Clear to auscultation bilaterally. No wheezes rales or rhonchi 6.GI: Soft, nondistended, mild right upper quadrant achiness on palpation, mild/minimal right CVA tenderness. 7.MSK: Normocephalic/Atraumatic, Extremities w/o deformity or ttp No cyanosis or clubbing, Normal movement of all extremities. Patient does have spasms of her erector spinae muscles around T4-5 and 6 bilaterally. No rash. 8.Skin: Warm, Dry. No rashes or lesions. 9.Neuro: jig inspector II-XII grossly intact. Sensation grossly intact, no focal neurologic deficits. 10.Psych: (AAO) x3. Appropriate mood and affect Course Vital Signs Vital signs: Vital Signs Temperature 36.8 C 07/05/25 00:49 Pulse 60 07/05/25 00:49 Respiratory Rate 16 07/05/25 00:49 Blood Pressure 103/78 07/05/25 00:49 Temperature 36.9 C 07/05/25 01:44 Temperature Source Oral 07/05/25 01:44 Pulse 61 07/05/25 01:44 Respiratory Rate 24 07/05/25 01:44 Blood Pressure 104/50 L 07/05/25 01:44 Blood Pressure Mean 68 07/05/25 01:44 Blood Pressure Position Supine 07/05/25 00:49 Pulse Oximetry 100 07/05/25 01:44 Oxygen Delivery Method Room Air 07/05/25 01:44 Oxygen Flow Rate 0 07/05/25 01:44 Pain Level 9 07/05/25 01:44 Comment relates Mid back pain that has been on going X 1 week states pain began in back but now is also in chest and flank areas 07/05/25 00:49 Lab/Test Results Lab/Test Results: Laboratory Tests Range/Units 07/05/25 07/05/25 00:40 01:35 WBC (4.4-10.8) 10^3/uL 16.10 H RBC (3.93-5.22) 10^6/uL 4.61 Hgb (11.2-15.7) g/dL 13.5 Hct (36.0-46.0) % 40.2 MCV (80-95) fL 87 MCH (27.0-33.0) pg 29.3 MCHC (32.0-36.0) % 33.6 RDW (11.7-14.6) % 12.2 Plt Count (130-400) 10^3/uL 284 MPV (8.0-11.0) fL 9.4 Immature Gran % % 0.4 Neutrophils % % 73.2 Lymphocytes % % 19.5 Monocytes % % 5.9 Eosinophils % % 0.6 Basophils % % 0.4 Nucleated RBC % (0.0-0.3) % 0.0 Absolute Neutrophils (1.2-6.7) 10^3/uL 11.79 H Absolute Lymphocytes (1.2-3.4) 10^3/uL 3.14 Absolute Monocytes (0.1-0.8) 10^3/uL 0.95 H Absolute Eosinophils (0.0-0.7) 10^3/uL 0.10 Absolute Basophils (0.0-0.2) 10^3/uL 0.06 Sodium (136-145) mmol/L 136 Potassium (3.5-5.1) mmol/L 3.4 L Chloride (98-107) mmol/L 98 Carbon Dioxide (21.0-32.0) mmol/L 28.8 Anion Gap (3-11) mmol/L 9.2 BUN (7-18) mg/dL 13 Creatinine (0.55-1.02) mg/dL 1.0 Est GFR (CKD-EPI 2020) (mL/min/1.73m2) 71.24 Glucose (74-106) mg/dL 131 H Calcium (8.5-10.1) mg/dL 9.5 Total Bilirubin (0.2-1.0) mg/dL 0.5 AST (15-37) U/L 77 H ALT (14-59) U/L 55 Alkaline Phosphatase (46-116) U/L 64 Troponin I (<or=51) ng/L < 4 Total Protein (6.4-8.2) g/dL 8.3 H Albumin (3.4-5.0) g/dL 4.5 Urine Color (Yellow) Yellow Urine Clarity (Clear) Clear Urine pH (5-8) 8.5 H Ur Specific [place] (1.005-1.025) 1.020 Urine Protein (Neg-Trace) mg/dL Negative Urine Ketones (Negative) mg/dL 15 H Urine Blood (Negative) Negative Urine Nitrite (Negative) Negative Urine Bilirubin (Negative) Negative Urine Urobilinogen (Up to 0.2) mg/dL 1.0 H Ur Leukocyte Esterase (Negative) Negative Urine Glucose (Negative) mg/dL Negative Medical Decision Making 44-year-old female with no significant past medical history presents today for evaluation of back pain with mild right flank pain. Patient states that for the last 2 to 3 weeks she has been having intermittent mid back pain. It is bilateral. 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 Usually comes on over a few hours and last for a day or so and eventually gets better. It is improved with ibuprofen. Symptoms have continued to come and gone over the last few weeks however starting this evening at around 10 PM she noticed that the pain got significantly worse and she had also developed right flank and side pain. She admits to nausea but denies vomiting. She denies any urinary symptoms of frequency or dysuria. She denies any diarrhea. She denies having symptoms like this in the past. No other complaints at this time. No other modifying factors. Exam demonstrates a well-appearing female, mild spasms of her bilateral erector spinae a muscles around T5 and 6. No rash to suggest shingles. No midline tenderness. Minimal right CVA tenderness, very mild right upper quadrant tenderness on initial palpation. Differential is broad but includes urolithiasis, pyelonephritis, kidney stone, or muscle strain. Right upper quadrant pain is concerning for cholecystitis, however the longevity of her s ymptoms makes this slightly more atypical. We will start with labs and urinalysis, we will treat with Ofirmev and Zofran, will gently rehydrate, we will monitor closely and reassess. 1:30 AM Patient has a white count of 16, moderate left shift but no bandemia. Electrolytes normal. Urinalysis shows no evidence of infection or blood. The elevated white count, the negative urinalysis concern for gallbladder pathology certainly does increase, as there is no clinical evidence to suggest pyelonephritis UTI or kidney stone. We we will get CT imaging for further assessment. 4:[address] imaging shows evidence of a prominent gallbladder with distention and gallstones, concerning for acute cholecystitis. Patient has now become more tender in the right upper quadrant, she is also had nausea and vomiting here in the ED. I do suspect that acute cholecystitis is the cause of her symptomatology with her labs white count and pain. I suspect she has been having biliary colic over the last few weeks which she was attributing to musculoskeletal back pain. With the evidence of the acute cholecystitis, we will give Zosyn for antibiotic coverage. I did contact the surgeon Dr. Painter. He accepts the patient for admission. Patient at this time does not show an acute surgical abdomen and is not necessitating emergent surgical intervention at this moment. I have extensively reviewed the treatment plan with the patient. I have addressed all patient concerns at this time. I have also discussed the plan with the admitting physician and they agree with the current assessment and plan and have agreed to assume responsibility for the patient. All parties demonstrate verbal understanding and agreement with our assessment and plan at this time. The documentation in this chart was dictated using [employer] dictation software. Please excuse any dictation errors. FINDINGS: Thyroid: Thyroid gland partially excluded from view but grossly unremarkable through its visualized portion. Lungs: Calcified pulmonary granulomas. Platelike atelectasis in the lingula. No pulmonary consolidation. Pleural spaces: No pleural effusion or pneumothorax. Heart: Normal-sized heart. Lymph nodes: No pathologically enlarged mediastinal or hilar lymph nodes. Vasculature: No thoracic aortic aneurysm or dissection. No pulmonary embolism identified. Bones/joints: No acute fracture seen among the bones of the chest. Soft tissues: No gross soft tissue mass or fluid collection seen in the chest wall. IMPRESSION: No active disease is seen in the chest FINDINGS: Diaphragm: Small hiatal hernia. Liver: Normal appearing liver. Gallbladder and biliary ducts: Prominent gallbladder distention. Gallstones. No biliary dilatation. Pancreas: Normal appearing pancreas. Spleen: Normal appearing spleen. Adrenal glands: Normal appearing adrenal glands. Kidneys and ureters: Normal appearing kidneys. No hydronephrosis. No obstructing ureteral stones. Stomach and bowel: Stomach moderately distended with fluid and gas. No small bowel dilatation to suggest obstruction. Normal-appearing colon. No evidence of diverticulitis or colitis. Appendix: Normal appendix. Intraperitoneal space: No gross ascites or free air. Vasculature: Normal caliber abdominal aorta. Lymph nodes: No pathologically enlarged mesenteric, retroperitoneal, or pelvic sidewall lymph nodes. Urinary bladder: Urinary bladder partially collapsed but grossly unremarkable, as seen. Reproductive: Uterus and ovaries partially obscured but normal in size. Bones/joints: No acute fracture seen among the bones of the abdomen or pelvis. Soft tissues: Diastasis recti. No significant ventral or inguinal hernia. IMPRESSION: 1. Prominent gallbladder distention with gallstones. Acute cholecystitis suggested in a patient with right-sided pain. Clinical correlation recommended. 2. No acute bowel pathology demonstrated. 3. No obstructing ureteral stones, hydronephrosis, or evidence of recent stone passage. Quality:SDOH Health Related Social Needs: Health related social needs risk of homeless material hardship Health related social needs details none identified PFSH All Active Problems (Updated 07/05/25 @ 04:51 by Tay Mckee DO) Acute cholecystitis (Acute) Eczema (Acute) Well woman exam (no gynecological exam) (Acute) Short of breath on exertion (Acute) Depressive disorder (Acute) Varicose vein of leg (Chronic) Premenstrual dysphoric disorder (Acute) Left knee pain (Acute) Weight gain (Acute) Medical History (Updated 07/05/25 @ 04:51 by Tay Mckee DO) COVID-19 05/11/22 Sirena-01/09/22 Moderna Booster 05/05/22 Encounter for sterilization 01/15/2019-bilateral salpingectomy at the time of Anemia affecting , antepartum 12/25/2018 office hemoglobin 8.1. Will offer patient weekly IV sucrose infusion. HX: benign breast biopsy Surgical History History of colonoscopy (~05/2021) normal, repeat 10 years Hx of section (06/25/18) 2010 arrest of descent. M. 01/15/2019 elective scheduled repeat and bilateral salpingectomy [place] teeth extracted H/O dilation and curettage 2007 SAB. 2012 Blighted ovum. Partial molar . No sequelae. Family History Mother Depression Hyperlipidemia Father Celiac disease Maternal Grandfather , late 70s Neoplasm PROSTATE Hyperlipidemia Prostate cancer Colon cancer Pancreatic cancer Paternal Grandfather , 80s Stroke Colon cancer Hyperlipidemia Maternal Grandmother , 89 Essential hypertension Heart disease Stroke Paternal Grandmother , early 80s Essential hypertension History of hip replacement H/O heart valve replacement with porcine valve Hyperlipidemia Son No problems noted. Daughter No problems noted. Social History (Updated 08/21/23 @ 10:51 by Adina Khan) Smoking/Tobacco Use Status: Never Second Hand Exposure: No Smoking risk assessment performed?: Yes Alcohol Intake: current Alcohol Intake frequency: a few times a week Alcohol type: beer and wine Details: 2-4 /month Drug use: Never Substance use type: does not use Caregiver/Support person: No Household members: spouse and children Housing: house Number of Children: 2 Communication Needs: Corrective Lenses Do you need help understanding health information?: Rarely Pets and animals: Yes (2 cats) Pets and animals: cat(s) Sexually active: Yes Do you think of yourself as: straight/heterosexual Current gender identity: female What is your relationship status?: How often do you talk on the phone with friends or family?: three or more times per week How often do you get together with friends or relatives?: once per week How often do you attend zoroastrianism or taoist services?: 4 or more times per year Do you belong to any clubs or organized social groups?: yes Panel score (0-1 are the most socially isolated patients): 4 What type of physical activity do you participate in: walking, aerobic, bicycling, other Details: 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 Date GA/Weeks # Preg Succ Route Wgt Sex Labor Lgth Anesth esia Location [facility] 01/15/19 38 No 3742.137 g Female A nan Burt Delivery Date: 01/15/19 Last Updated by: Catie Burt M.D. elective scheduled repeat delivery with tubal sterilization. Daughter is named
[2025-07-05 02:44] LABS: Troponin I < 4 ng/L (<or=51)
--- NOTE | 2025-07-05 03:20 | DI.VRAD_ITS ---
PROCEDURE INFORMATION: Exam: CT Chest With Contrast; Diagnostic Exam date and time: 07/05/2025 2:36 AM Age: 44 years old Clinical indication: Abdominal pain; Right-sided; Additional info: Right chest and abdominal/flank pain TECHNIQUE: Imaging protocol: Diagnostic computed tomography of the chest with contrast. 3D rendering (Not supervised by radiologist): MIP and/or 3D reconstructed images were created by the technologist. Contrast material: OMNI 350; Contrast volume: 75 ml; Contrast route: INTRAVENOUS (IV); COMPARISON: No relevant prior studies available. FINDINGS: Thyroid: Thyroid gland partially excluded from view but grossly unremarkable through its visualized portion. Lungs: Calcified pulmonary granulomas. Platelike atelectasis in the lingula. No pulmonary consolidation. Pleural spaces: No pleural effusion or pneumothorax. Heart: Normal-sized heart. Lymph nodes: No pathologically enlarged mediastinal or hilar lymph nodes. Vasculature: No thoracic aortic aneurysm or dissection. No pulmonary embolism identified. Bones/joints: No acute fracture seen among the bones of the chest. Soft tissues: No gross soft tissue mass or fluid collection seen in the chest wall. IMPRESSION: No active disease is seen in the chest. PROCEDURE INFORMATION: Exam: CT Abdomen And Pelvis With Contrast Exam date and time: 07/05/2025 2:36 AM Age: 44 years old Clinical indication: Abdominal pain; Right-sided; Additional info: Right chest and abdominal/flank pain TECHNIQUE: Imaging protocol: Computed tomography of the abdomen and pelvis with contrast. 3D rendering (Not supervised by radiologist): MIP and/or 3D reconstructed images were created by the technologist. Contrast material: OMNI 350; Contrast volume: 75 ml; Contrast route: INTRAVENOUS (IV); COMPARISON: US OB JENNIFER weight 12/04/2018 2:45 PM FINDINGS: Diaphragm: Small hiatal hernia. Liver: Normal appearing liver. Gallbladder and biliary ducts: Prominent gallbladder distention. Gallstones. No biliary dilatation. Pancreas: Normal appearing pancreas. Spleen: Normal appearing spleen. Adrenal glands: Normal appearing adrenal glands. Kidneys and ureters: Normal appearing kidneys. No hydronephrosis. No obstructing ureteral stones. Stomach and bowel: Stomach moderately distended with fluid and gas. No small bowel dilatation to suggest obstruction. Normal-appearing colon. No evidence of diverticulitis or colitis. Appendix: Normal appendix. Intraperitoneal space: No gross ascites or free air. Vasculature: Normal caliber abdominal aorta. Lymph nodes: No pathologically enlarged mesenteric, retroperitoneal, or pelvic sidewall lymph nodes. Urinary bladder: Urinary bladder partially collapsed but grossly unremarkable, as seen. Reproductive: Uterus and ovaries partially obscured but normal in size. Bones/joints: No acute fracture seen among the bones of the abdomen or pelvis. Soft tissues: Diastasis recti. No significant ventral or inguinal hernia. IMPRESSION: 1. Prominent gallbladder distention with gallstones. Acute cholecystitis suggested in a patient with right-sided pain. Clinical correlation recommended. 2. No acute bowel pathology demonstrated. 3. No obstructing ureteral stones, hydronephrosis, or evidence of recent stone passage. Dictated and Authenticated by: Jay Kirby MD. Orderin Rafi Cross MD
[2025-07-05] MEDS: MORPHine 4 MG/ML SYR IVP (04:00)
[2025-07-05] MEDS: CIPROFLOXACIN 400 MG/200 ML BAG 200 MG IVPB (04:00)
[2025-07-05] MEDS: Heparin 5,000 UNITS/ML VIAL 5000 UNITS SC ×2 (04:08→04:10)
[2025-07-05] MEDS: Metoclopramide 10 MG/2 ML VIAL IVP (04:10)
[2025-07-05] MEDS: metroNIDAZOLE 500 MG/100 ML BAG 100 MG IVPB (04:21)
--- NOTE | 2025-07-05 04:21 | NUR.NOTE ---
Dr merritt called to verify heparin order to be given now. Dr Merritt instructed RN to give dose now. Nursing Note:
--- NOTE | 2025-07-05 06:14 | W.PC.ACHO ---
Registration Status: REG ER Primary Language: Preferred Language: Ukrainian ED Information & Data Chief Complaint Chest Pain 07/05/25 04:51 Medical / Surgical History (Last Updated 08/16/23 @ 15:34 by Jeff Levine NP) COVID-19 Encounter for sterilization Anemia affecting , antepartum HX: benign breast biopsy (Last Reviewed 04/04/23 @ 11:51 by Robert Russell MD) History of colonoscopy (~05/2021) Hx of section (06/25/18) [place] teeth extracted H/O dilation and curettage Most Recent Vital Signs Temperature 36.9 C 07/05/25 01:44 Temperature Source Oral 07/05/25 01:44 Pulse 61 07/05/25 01:44 Respiratory Rate 24 07/05/25 01:44 Blood Pressure 104/50 L 07/05/25 01:44 Blood Pressure Mean 68 07/05/25 01:44 Blood Pressure Position Supine 07/05/25 00:49 Pulse Oximetry 100 07/05/25 01:44 Oxygen Delivery Method Room Air 07/05/25 01:44 Oxygen Flow Rate 0 07/05/25 01:44 Pain Level 9 07/05/25 01:44 Comment relates Mid back pain that has been on going X 1 week states pain began in back but now is also in chest and flank areas 07/05/25 00:49 Allergies amoxicillin Adverse Reaction (Mild, Verified 05/08/25 14:46) NAUSEA tetracycline Adverse Reaction (Mild, Verified 05/08/25 14:46) NAUSEA Penicillins Adverse Reaction (Unknown, Verified 05/08/25 14:46) NAUSEA Precautions Isolation Standard precaution 07/05/25 00:49 Active Medications Generic Name Dose Route Start Last Admin Trade Name Simoneq PRN Reason Stop Dose Admin Heparin Sodium (Porcine) 5,000 units 07/05/25 03:45 07/05/25 04:08 Heparin 5,000 Units/Ml Vial SC 5,000 units Q8H ISAIAH Administration Iohexol 100 ml 07/05/25 02:30 07/05/25 02:40 Omnipaque 350 Mg/Ml 100 Ml Btl IJ 08/04/25 23:59 75 ml DIRECTED ISAIAH Administration Sodium Chloride 50 ml 07/05/25 02:30 07/05/25 02:39 Normal Saline - Diluent 50 Ml Vial IJ 50 ml DIRECTED ISAIAH Administration Sodium Chloride 0 ml 07/05/25 02:27 07/05/25 02:39 Normal Saline Flush 10 Ml Syr IVP 10 ml PRN PRN Administration IV IV Catheter Type [Right Saline Lock Antecubital] IV Catheter Gauge [Right 20 Antecubital] Diet Orders Category Date Time Status Nothing Per Oral [DIET] Nutrition 07/05/25 03:37 Active Diagnostics 07/05/25 07/05/25 07/05/25 Range/Units 03:30 02:15 01:35 WBC (4.4-10.8) 10^3/uL RBC (3.93-5.22) 10^6/uL Hgb (11.2-15.7) g/dL Hct (36.0-46.0) % MCV (80-95) fL MCH (27.0-33.0) pg MCHC (32.0-36.0) % RDW (11.7-14.6) % Plt Count (130-400) 10^3/uL MPV (8.0-11.0) fL Immature Gran % % Neutrophils % % Lymphocytes % % Monocytes % % Eosinophils % % Basophils % % Nucleated RBC % (0.0-0.3) % Absolute Neutrophils (1.2-6.7) 10^3/uL Absolute Lymphocytes (1.2-3.4) 10^3/uL Absolute Monocytes (0.1-0.8) 10^3/uL Absolute Eosinophils (0.0-0.7) 10^3/uL Absolute Basophils (0.0-0.2) 10^3/uL Sodium (136-145) mmol/L Potassium (3.5-5.1) mmol/L Chloride (98-107) mmol/L Carbon Dioxide (21.0-32.0) mmol/L Anion Gap (3-11) mmol/L BUN (7-18) mg/dL Creatinine (0.55-1.02) mg/dL Est GFR (CKD-EPI 2020) (mL/min/1.73m2) Glucose (74-106) mg/dL Calcium (8.5-10.1) mg/dL Total Bilirubin (0.2-1.0) mg/dL AST (15-37) U/L ALT (14-59) U/L Alkaline Phosphatase (46-116) U/L Troponin I Cancelled < 4 (<or=51) ng/L Total Protein (6.4-8.2) g/dL Albumin (3.4-5.0) g/dL Urine Color Yellow (Yellow) Urine Clarity Clear (Clear) Urine pH 8.5 H (5-8) Ur Specific [place] 1.020 (1.005-1.025) Urine Protein Negative (Neg-Trace) mg/dL Urine Ketones 15 H (Negative) mg/dL Urine Blood Negative (Negative) Urine Nitrite Negative (Negative) Urine Bilirubin Negative (Negative) Urine Urobilinogen 1.0 H (Up to 0.2) mg/dL Ur Leukocyte Esterase Negative (Negative) Urine Glucose Negative (Negative) mg/dL 07/05/25 Range/Units 00:40 WBC 16.10 H (4.4-10.8) 10^3/uL RBC 4.61 (3.93-5.22) 10^6/uL Hgb 13.5 (11.2-15.7) g/dL Hct 40.2 (36.0-46.0) % MCV 87 (80-95) fL MCH 29.3 (27.0-33.0) pg MCHC 33.6 (32.0-36.0) % RDW 12.2 (11.7-14.6) % Plt Count 284 (130-400) 10^3/uL MPV 9.4 (8.0-11.0) fL Immature Gran % 0.4 % Neutrophils % 73.2 % Lymphocytes % 19.5 % Monocytes % 5.9 % Eosinophils % 0.6 % Basophils % 0.4 % Nucleated RBC % 0.0 (0.0-0.3) % Absolute Neutrophils 11.79 H (1.2-6.7) 10^3/uL Absolute Lymphocytes 3.14 (1.2-3.4) 10^3/uL Absolute Monocytes 0.95 H (0.1-0.8) 10^3/uL Absolute Eosinophils 0.10 (0.0-0.7) 10^3/uL Absolute Basophils 0.06 (0.0-0.2) 10^3/uL Sodium 136 (136-145) mmol/L Potassium 3.4 L (3.5-5.1) mmol/L Chloride 98 (98-107) mmol/L Carbon Dioxide 28.8 (21.0-32.0) mmol/L Anion Gap 9.2 (3-11) mmol/L BUN 13 (7-18) mg/dL Creatinine 1.0 (0.55-1.02) mg/dL Est GFR (CKD-EPI 2020) 71.24 (mL/min/1.73m2) Glucose 131 H (74-106) mg/dL Calcium 9.5 (8.5-10.1) mg/dL Total Bilirubin 0.5 (0.2-1.0) mg/dL AST 77 H (15-37) U/L ALT 55 (14-59) U/L Alkaline Phosphatase 64 (46-116) U/L Troponin I < 4 (<or=51) ng/L Total Protein 8.3 H (6.4-8.2) g/dL Albumin 4.5 (3.4-5.0) g/dL Urine Color (Yellow) Urine Clarity (Clear) Urine pH (5-8) Ur Specific [place] (1.005-1.025) Urine Protein (Neg-Trace) mg/dL Urine Ketones (Negative) mg/dL Urine Blood (Negative) Urine Nitrite (Negative) Urine Bilirubin (Negative) Urine Urobilinogen (Up to 0.2) mg/dL Ur Leukocyte Esterase (Negative) Urine Glucose (Negative) mg/dL Intake and Output - 24 Hour Total 07/05/25 00:18 thru 07/05/25 04:31 Intake Total 100 Balance 100 Weight 72.575 kg Intake: IV 100 Falls Risk Assessment History of Falls No History 07/05/25 01:03 Contributing Factors No Factors 07/05/25 01:03 Tubes/Lines None 07/05/25 01:03 Gait Evaluation No gait disturbance 07/05/25 01:03 Cognition No cognitive impairment 07/05/25 01:03 Fall Total Score 0 07/05/25 01:03 Notes 07/05/25 04:21 Nursing Notes by Vlad Wade Dr called to verify heparin order to be given now. Dr Painter instructed RN to give dose now. Nursing Note: Initialized on 07/05/25 04:21 - END OF NOTE v v v v v v v v v Sending and/or Receiving Nurses: Please use comment section below to note any information pertinent to the patient hand-off not included above. Information / Comments: no further questions. Report received from: KEVIN ZAMAN
[2025-07-05] MEDS: Lactated Ringers 1,000 ML 125 ML IV (06:56)
--- NOTE | 2025-07-05 09:15 | SCONE_ITS ---
Date of service: 07/05/25 Time of Service: 09:16 Assessment and Plan Assessment and plan (1) Acute cholecystitis: Status: Acute Assessment and plan: 44 yo woman with acute cholecystitis clinically. I think this is a case of crescendo symptomatic cholelithiasis overall that has accumulated into acute cholecystitis last night evidenced by the constant subcostal pain and chest tightness. She is hemodynamically stable. We had a discussion at the bedside with the patient and her about gallbladder purpose/function and removal of it. We talked about the risks of gallbladder removal - in particular we talked about the risk of persistent symptoms if we are wrong about the diagnosis and also the low but possible chance of chronic post?cholecystectomy syndrome when it comes to dietary tolerances. The patient and her are both in agreement with the indications for surgery, the possible risks but the likely benefits and want to proceed. PLAN: Laparoscopic Cholecystectomy History of Present Illness Narrative: 44-year-old woman has been having right upper quadrant discomfort and back pain for about 2 weeks. It has been on and off but slowly getting worse and worse. Last night, it started becoming tight chest pain and her and her became worried so she came to the emergency department. She does not have any other signs or symptoms of concern. No systemic issues such as fevers or chills. No bowel habit changes. No known sick contacts. A distended gallbladder was discovered on cross-sectional imaging along with a gallstone. She has a leukocytosis and a slight elevation in transaminase. She has only had C-sections for intra-abdominal surgical history. PFSH All Active Problems (Updated 07/05/25 @ 04:51 by Tay Mckee DO) Acute cholecystitis (Acute) Eczema (Acute) Well woman exam (no gynecological exam) (Acute) Short of breath on exertion (Acute) Depressive disorder (Acute) Varicose vein of leg (Chronic) Premenstrual dysphoric disorder (Acute) Left knee pain (Acute) Weight gain (Acute) Medical History (Updated 07/05/25 @ 04:51 by Tay Mckee DO) COVID-19 05/11/22 Sirena-01/09/22 Moderna Booster 05/05/22 Encounter for sterilization 01/15/2019-bilateral salpingectomy at the time of Anemia affecting , antepartum 12/25/2018 office hemoglobin 8.1. Will offer patient weekly IV sucrose infusion. HX: benign breast biopsy Surgical History History of colonoscopy (~05/2021) normal, repeat 10 years Hx of section (06/25/18) 2010 arrest of descent. M. 01/15/2019 elective scheduled repeat and bilateral salpingectomy [place] teeth extracted H/O dilation and curettage 2007 SAB. 2012 Blighted ovum. Partial molar . No sequelae. Family History Mother Depression Hyperlipidemia Father Celiac disease Maternal Grandfather , late 70s Neoplasm PROSTATE Hyperlipidemia Prostate cancer Colon cancer Pancreatic cancer Paternal Grandfather , 80s Stroke Colon cancer Hyperlipidemia Maternal Grandmother , 89 Essential hypertension Heart disease Stroke Paternal Grandmother , early 80s Essential hypertension History of hip replacement H/O heart valve replacement with porcine valve Hyperlipidemia Son No problems noted. Daughter No problems noted. Social History (Updated 08/21/23 @ 10:51 by Adina Khan) Smoking/Tobacco Use Status: Never Second Hand Exposure: No Smoking risk assessment performed?: Yes Alcohol Intake: current Alcohol Intake frequency: a few times a week Alcohol type: beer and wine Details: 2-4 /month Drug use: Never Substance use type: does not use Caregiver/Support person: No Household members: spouse and children Housing: house Number of Children: 2 Communication Needs: Corrective Lenses Do you need help understanding health information?: Rarely Pets and animals: Yes (2 cats) Pets and animals: cat(s) Sexually active: Yes Do you think of yourself as: straight/heterosexual Current gender identity: female What is your relationship status?: How often do you talk on the phone with friends or family?: three or more times per week How often do you get together with friends or relatives?: once per week How often do you attend yazidism or catholic services?: 4 or more times per year Do you belong to any clubs or organized social groups?: yes Panel score (0-1 are the most socially isolated patients): 4 What type of physical activity do you participate in: walking, aerobic, bicycling, other Details: dance instrictor @ [place], Pilates and yoga Duration: 15-30 minutes/day Frequency: 3-4 times per week Hazel/Nondenominational: Mandaeism Special hazel needs: No Seatbelt use: always Helmet use: Yes Drive intox or ride w/intox cdl a driver: No Do you feel safe at home: Yes Do you feel safe in your relationship?: Yes Female Reproductive History Menstrual control method: permanent sterilization History History 2 4 Para 1 Hx # Term Pregnancies 1 Multiple births 0 Hx # Pregnancies 0 Ectopic pregnancies 0 AB induced Hx Number of Living Children 1 AB spontaneous 2 Past Pregnancies Del. Date GA/Weeks # Preg Succ Route Wgt Sex Labor Lgth Anesth esia Location Prov [facility] 01/15/19 38 No 8 lb 4 oz Female An nithya Burt Delivery Date: 01/15/19 Last Updated by: Catie Burt M.D. elective scheduled repeat delivery with tubal sterilization. Daughter is named Fela. Exam Narrative Exam Narrative: Gen: Non-toxic, interactive and does not appear overtly uncomfortable. She has had morphine. Neuro: Alert and oriented x3 Psych: Good mood and affect. Good insight and understanding into condition. Chest: Non-labored breathing, no wheezing, no visible shortness of breath. Heart: Regular Abdomen: Soft, no distention, focal right upper quadrant discomfort to deep palpation. Escobedo sign is present Results Last Vital Signs Temp 97.9 F 07/05/25 06:28 Pulse 69 07/05/25 06:28 Resp 15 07/05/25 06:28 BP 112/65 07/05/25 06:28 Pulse Ox 98 07/05/25 06:28 Labs 07/05/25 00:40 07/05/25 00:40 Labs: Laboratory Results - last 24 hr 07/05/25 07/05/25 07/05/25 00:40 01:35 02:15 WBC 16.10 H RBC 4.61 Hgb 13.5 Hct 40.2 MCV 87 MCH 29.3 MCHC 33.6 RDW 12.2 Plt Count 284 MPV 9.4 Immature Gran % 0.4 Neutrophils % 73.2 Lymphocytes % 19.5 Monocytes % 5.9 Eosinophils % 0.6 Basophils % 0.4 Nucleated RBC % 0.0 Absolute Neutrophils 11.79 H Absolute Lymphocytes 3.14 Absolute Monocytes 0.95 H Absolute Eosinophils 0.10 Absolute Basophils 0.06 Sodium 136 Potassium 3.4 L Chloride 98 Carbon Dioxide 28.8 Anion Gap 9.2 BUN 13 Creatinine 1.0 Est GFR (CKD-EPI 2020) 71.24 Glucose 131 H Calcium 9.5 Total Bilirubin 0.5 AST 77 H ALT 55 Alkaline Phosphatase 64 Troponin I < 4 < 4 Total Protein 8.3 H Albumin 4.5 Urine Color Yellow Urine Clarity Clear Urine pH 8.5 H Ur Specific [place] 1.020 Urine Protein Negative Urine Ketones 15 H Urine Blood Negative Urine Nitrite Negative Urine Bilirubin Negative Urine Urobilinogen 1.0 H Ur Leukocyte Esterase Negative Urine Glucose Negative 07/05/25 03:30 WBC RBC Hgb Hct MCV MCH MCHC RDW Plt Count MPV Immature Gran % Neutrophils % Lymphocytes % Monocytes % Eosinophils % Basophils % Nucleated RBC % Absolute Neutrophils Absolute Lymphocytes Absolute Monocytes Absolute Eosinophils Absolute Basophils Sodium Potassium Chloride Carbon Dioxide Anion Gap BUN Creatinine Est GFR (CKD-EPI 2020) Glucose Calcium Total Bilirubin AST ALT Alkaline Phosphatase Troponin I Cancelled Total Protein Albumin Urine Color Urine Clarity Urine pH Ur Specific [place] Urine Protein Urine Ketones Urine Blood Urine Nitrite Urine Bilirubin Urine Urobilinogen Ur Leukocyte Esterase Urine Glucose
[2025-07-05 10:01] LABS: HCG Qual (Urine) Negative
--- NOTE | 2025-07-05 10:02 | ANES.PREOP_ITS ---
General Info Date of Service Date Performed: 07/05/25 Height: 4 ft 11.7 in Weight: 73.9 kg Body Mass Index (BMI): 32.1 Surgical Procedure: Operation Date: 07/05/25 09:20 Proposed Procedure Side Surgeon p Cholecystectomy Laparoscopic Not Applicable Kirk Painter MD Meds Allergies and Home Medications Allergies Allergy/AdvReac Type Severity Reaction Status Date / Time amoxicillin AdvReac Mild NAUSEA Verified 05/08/25 14:46 tetracycline AdvReac Mild NAUSEA Verified 05/08/25 14:46 Penicillins AdvReac Unknown NAUSEA Verified 05/08/25 14:46 Home Medication ?Medication ?Instructions ?Recorded citalopram 20 mg tablet See Rx Instructions .Route 1 12/15/23 .COMPLEX #405 tabs triamcinolone acetonide 0.1 % 1 applic topical BID #30 grams 05/08/25 topical cream Current Visit Medications: Current Medications Generic Name Dose Route Start Last Admin Trade Name Freq PRN Reason Stop Dose Admin Heparin Sodium (Porcine) 5,000 units 07/05/25 06:00 07/05/25 04:10 Heparin 5,000 Units/Ml Vial SC 5,000 units Q8H ISAIAH Administration Ringer's Solution 1,000 mls @ 125 mls/hr 07/05/25 03:45 07/05/25 06:56 IV 125 mls/hr INFUSION ISAIAH Administration IV Miscellaneous Supplies 1 each 07/05/25 00:30 Iv Access-Emergency Dept IV DIRECTED ISAIAH Iohexol 100 ml 07/05/25 02:30 07/05/25 02:40 Omnipaque 350 Mg/Ml 100 Ml Btl IJ 08/04/25 23:59 75 ml DIRECTED ISAIAH Administration Morphine Sulfate 2 mg 07/05/25 03:35 Morphine 2 Mg/Ml Syr IVP Q1H PRN PRN Ondansetron HCl 4 mg 07/05/25 03:35 Ondansetron 4 Mg/2 Ml Vial IVP Q4H PRN PRN Sodium Chloride 0 ml 07/05/25 00:30 Normal Saline Flush 10 Ml Syr IVP PRN PRN Sodium Chloride 0 ml 07/05/25 08:30 Normal Saline Flush 10 Ml Syr IVP BID ISAIAH Sodium Chloride 0 ml 07/05/25 00:30 Normal Saline 10 Ml Vial IJ DIRECTED PRN Sodium Chloride 50 ml 07/05/25 02:30 07/05/25 02:39 Normal Saline - Diluent 50 Ml Vial IJ 50 ml DIRECTED ISAIAH Administration Sodium Chloride 0 ml 07/05/25 02:27 07/05/25 02:39 Normal Saline Flush 10 Ml Syr IVP 10 ml PRN PRN Administration PFSH Active Problems Active Problems: Problem Status Onset Code Acute cholecystitis Acute K81.0 Eczema Acute L30.9 Well woman exam (no gynecological exam) Acute Z00.00 Short of breath on exertion Acute R06.02 Depressive disorder Acute F32.9 Varicose vein of leg Chronic I83.90 Premenstrual dysphoric disorder Acute F32.81 Left knee pain Acute M25.562 Weight gain Acute R63.5 Medical History Medical History (Updated 07/05/25 @ 04:51 by Tay Mckee DO) COVID-19 05/11/22 Sirena-01/09/22 Moderna Booster 05/05/22 Encounter for sterilization 01/15/2019-bilateral salpingectomy at the time of Anemia affecting , antepartum 12/25/2018 office hemoglobin 8.1. Will offer patient weekly IV sucrose infusion. HX: benign breast biopsy Surgical History Surgical History History of colonoscopy (~05/2021) normal, repeat 10 years Hx of section (06/25/18) 2010 arrest of descent. M. 01/15/2019 elective scheduled repeat and bilateral salpingectomy [place] teeth extracted H/O dilation and curettage 2007. 2012 Blighted ovum. Partial molar . No sequelae. Tobacco Smoking/Tobacco Use Status: Never Passive smoking exposure: No Second hand exposure: No Alcohol Alcohol Intake: current Alcohol intake frequency: a few times a week Alcohol type: beer and wine Details: 2-4 /month Substance Use Substance use: Never Substance use type: does not use Prental History History 2 4 Para 1 Hx # Term Pregnancies 1 Multiple births 0 Hx # Pregnancies 0 Ectopic pregnancies 0 AB induced Hx Number of Living Children 1 AB spontaneous 2 Past Pregnancies Del. Date GA/Weeks # Preg Succ Route Wgt Sex Labor Lgth Anesth esia Location Prov [facility] 01/15/19 38 No 3742.137 g Female A nne O'candace Delivery Date: 01/15/19 Last Updated by: Catie Wilde M.D. elective scheduled repeat delivery with tubal sterilization. Daughter is named Fela. Vital Signs and Lab Results Vital Signs Most Recent Vital Signs in EMR: Most Recent Vital Signs Temp Pulse Resp BP Pulse Ox 36.6 C 69 15 112/65 98 07/05/25 06:28 07/05/25 06:28 07/05/25 06:28 07/05/25 06:28 07/05/25 06:28 Lab Results 07/05/25 00:40 07/05/25 00:40 Complete Blood Count: 2 WBC, (4.4-10.8) 16.10 10^3/uL H Today, 00:40 RBC, (3.93-5.22) 4.61 10^6/uL Today, 00:40 Hgb, (11.2-15.7) 13.5 g/dL Today, 00:40 Hct, (36.0-46.0) 40.2 % Today, 00:40 Plt Count, (130-400) 284 10^3/uL Today, 00:40 Complete Metabolic Panel: 2 Sodium, (136-145) 136 mmol/L Today, 00:40 Potassium, (3.5-5.1) 3.4 mmol/L L Today, 00:40 Chloride, (98-107) 98 mmol/L Today, 00:40 Carbon Dioxide, (21.0-32.0) 28.8 mmol/L Today, 00:40 BUN, (7-18) 13 mg/dL Today, 00:40 Creatinine, (0.55-1.02) 1.0 mg/dL Today, 00:40 Est GFR (CKD-EPI 2020), (mL/min/1.73m2) 71.24 Today, 00:40 Calcium, (8.5-10.1) 9.5 mg/dL Today, 00:40 Albumin, (3.4-5.0) 4.5 g/dL Today, 00:40 Glucose, (74-106) 131 mg/dL H Today, 00:40 Liver Function Panel: 2 ALT, (14-59) 55 U/L Today, 00:40 AST, (15-37) 77 U/L H Today, 00:40 Cardiac Panel: 2 Troponin I, (<or=51) < 4 ng/L Today Panel: 2 Urine HCG, Qual Negative Today, 01:35 Imaging and Studies Imaging and Studies Study information below may be from another EMR and interpreted by another provider. Please see original notes in EMR for more complete details. Stress Test Summary: 05/2024:Stress ECG Conclusion 1. Resting electrocardiogram was normal 2. Patient exercised on the Wilbur protocol completed workload of 9.46 METS limited by fatigue 3. Normal heart rate and blood pressure response to exercise. The patient achieved 90% of predicted heart rate for age 4. There was no electrocardiographic evidence of myocardial ischemia 5. There were no dysrhythmias Hassan Treadmill Score is 7.5 which is Low risk. Anesthesia Assessment and Plan Anesthesia History Personal History: No History of Anesthesia Complications Family History: No Family History of Anesthesia Complications Exercise Tolerance Exercise Tolerance: Metabolic Equivalents>4 Cardiac & Pulmonary Exam Cardiac Exam: Normal S1/S2 Heart Sounds Pulmonary Exam: Clear Bilateral Breath Sounds Implantable Cardiac Device Does patient have a Pacemaker or an ICD?: No Airway Exam Known Difficult Airway: No Mallampati Class: 2 Mouth Opening: Normal (> 3cm) Thyromental Distance: Greater than 3 cm Neck Range of Motion: Full ROM Neck Circumference: Normal Teeth Condition: Normal Dentition ASA Classification ASA Score: ASA 2 Emergency Case?: No NPO Status NPO Status: NPO Clears >2 hours, Solids >8 hours Status Status: Negative HCG Anesthesia Plan Resuscitation Status: Full Code Anesthesia Technique: General Anesthesia Airway Planned: Endotracheal Tube Monitors Used: Standard Monitors
--- NOTE | 2025-07-05 10:28 | DSE_ITS ---
Date of service: 07/05/25 Time of Service: 10:28 DS: Diagnosis Discharge Diagnosis (1) Acute cholecystitis: Status: Acute Asessment and Plan: Overall plan: Status post laparoscopic cholecystectomy Discharge home Discharge Plan Disposition Patient Disposition: Home Condition: Improving Discharge Details Reason For Visit: acute vannessa Admit Date/Time: 07/05/25 03:36 Admit Provider: Kirk Painter Attending Provider: Kirk Painter Primary Care Provider: Jeff Levine Hospital Course Hospital Course: 44-year-old woman with acute cholecystitis was admitted. Laparoscopic cholecystectomy performed. She was then discharged home. Home Meds and New Rx's Prescriptions: No Action triamcinolone acetonide 0.1 % cream 1 applic topical BID Qty: 30 2RF citalopram 20 mg tablet See Rx Instructions .ROUTE .COMPLEX Qty: 405 0RF Dose Instruction: TAKE ONE TABLET BY MOUTH DAILY FOR THE FIRST TWO WEEKS OF YOUR MENSTRUAL CYCLE. THEN TAKE TWO TABLETS FOR THE LAST TWO WEEKS OF YOUR MENSTRUAL CCLE Rx Instructions: TAKE ONE TABLET BY MOUTH DAILY FOR THE FIRST TWO WEEKS OF YOUR MENSTRUAL CYCLE. THEN TAKE TWO TABLETS FOR THE LAST TWO WEEKS OF YOUR MENSTRUAL CCLE Discharge Instructions Additional Instructions: FINDINGS: INSTRUCTIONS: Incisions: Keep clean and dry but they do not need to be covered. It is okay to shower but no tub bathing for 1 week. You can peel the glue off after 1 week. Activity: As tolerated. There are no restrictions, but if it hurts, go easier on your body. Diet: Low fat/no grease diet for the next couple of weeks and then slowly introduce regular food, without restriction, as tolerated. Medications: Resume any/all of your usual/regular home medications. Follow-up: If you are having any issues or concerns call the surgery office immediately and we will see you right away. If you wish to have a routine follow-up that is perfectly fine and you can call and schedule one. If everything is otherwise going well, you do not have to follow-up unless you want to. Work notes: Call the [facility] office Sunday?Sunday with any forms, paperwork or letters that you need authenticated/signed/filled out. Pain control: Take Tylenol, 1000 mg, every 6 hours on a schedule for the next 3 days. You can use ibuprofen in addition to Tylenol if needed. Ice can be used as needed. No narcotics. Overall: Symptoms should not be worsening. If you have any difficulty breathing or you have return of symptoms of brought you to the hospital or your pain is otherwise worsening each day and you should call the doctor's office or come into the hospital to be checked out. Activity:: Activity as Tolerated Equipment/Supplies:: No Equipment Needed Diet:: As Tolerated DS: Summary Time Spent with Patient providing and/or coordinating discharge services: Less than 30 minutes Status at Discharge Functional status at discharge: independent ambulation Overall status at discharge: patient is progressing back to baseline Mental Status: mental status grossly normal Speech and Movement: speech and movement normal Mood: congruent mood Affect: normal affect Quality:SDOH Health Related Social Needs: Health related social needs risk of homeless material hardship Health related social needs details none identified Health related social needs details: none identified Exam Psych Mental Status: mental status grossly normal Speech and Movement: speech and movement normal Mood: congruent mood Affect: normal affect DS: Data Vitals/I&O Vitals and I&O: Vital Signs Temperature 97.9 F 07/05/25 06:28 Temperature Source Oral 07/05/25 01:44 Pulse 69 07/05/25 06:28 Pulse Rhythm Regular 07/05/25 06:28 Respiratory Rate 15 07/05/25 06:28 Respiratory Effort Normal 07/05/25 06:28 Respiratory Depth Normal 07/05/25 06:28 Blood Pressure 112/65 07/05/25 06:28 Blood Pressure Mean 68 07/05/25 01:44 Blood Pressure Position Supine 07/05/25 00:49 Pulse Oximetry 98 07/05/25 06:28 Oxygen Delivery Method Room Air 07/05/25 06:28 Oxygen Flow Rate 0 07/05/25 06:28 Pain Level 4 07/05/25 06:28 Comment relates Mid back pain that has been on going X 1 week states pain began in back but now is also in chest and flank areas 07/05/25 00:49 Intake & Output 07/04/25 07/04/25 07/05/25 11:59 23:59 11:59 Intake Total 400 / 400 Balance 400 / 400 Weight 162 lb 14.746 oz Intake: IV 400 / 400 Data Completed and Pending Labs on day of discharge: Labs from last 24 hours 07/05/25 07/05/25 07/05/25 03:30 02:15 01:35 WBC RBC Hgb Hct MCV MCH MCHC RDW Plt Count MPV Immature Gran % Neutrophils % Lymphocytes % Monocytes % Eosinophils % Basophils % Nucleated RBC % Absolute Neutrophils Absolute Lymphocytes Absolute Monocytes Absolute Eosinophils Absolute Basophils Sodium Potassium Chloride Carbon Dioxide Anion Gap BUN Creatinine Est GFR (CKD-EPI 2020) Glucose Calcium Total Bilirubin AST ALT Alkaline Phosphatase Troponin I Cancelled < 4 Total Protein Albumin Urine Color Yellow Urine Clarity Clear Urine pH 8.5 H Ur Specific Wick[place] 1.020 Urine Protein Negative Urine Ketones 15 H Urine Blood Negative Urine Nitrite Negative Urine Bilirubin Negative Urine Urobilinogen 1.0 H Ur Leukocyte Esterase Negative Urine Glucose Negative Urine HCG, Qual Negative 07/05/25 00:40 WBC 16.10 H RBC 4.61 Hgb 13.5 Hct 40.2 MCV 87 MCH 29.3 MCHC 33.6 RDW 12.2 Plt Count 284 MPV 9.4 Immature Gran % 0.4 Neutrophils % 73.2 Lymphocytes % 19.5 Monocytes % 5.9 Eosinophils % 0.6 Basophils % 0.4 Nucleated RBC % 0.0 Absolute Neutrophils 11.79 H Absolute Lymphocytes 3.14 Absolute Monocytes 0.95 H Absolute Eosinophils 0.10 Absolute Basophils 0.06 Sodium 136 Potassium 3.4 L Chloride 98 Carbon Dioxide 28.8 Anion Gap 9.2 BUN 13 Creatinine 1.0 Est GFR (CKD-EPI 2020) 71.24 Glucose 131 H Calcium 9.5 Total Bilirubin 0.5 AST 77 H ALT 55 Alkaline Phosphatase 64 Troponin I < 4 Total Protein 8.3 H Albumin 4.5 Urine Color Urine Clarity Urine pH Ur Specific Wickes Urine Protein Urine Ketones Urine Blood Urine Nitrite Urine Bilirubin Urine Urobilinogen Ur Leukocyte Esterase Urine Glucose Urine HCG, Qual PFSH All Active Problems (Updated 07/05/25 @ 04:51 by Tay Mckee DO) Acute cholecystitis (Acute) Eczema (Acute) Well woman exam (no gynecological exam) (Acute) Short of breath on exertion (Acute) Depressive disorder (Acute) Varicose vein of leg (Chronic) Premenstrual dysphoric disorder (Acute) Left knee pain (Acute) Weight gain (Acute) Medical History (Updated 07/05/25 @ 04:51 by Tay Mckee DO) COVID-19 05/11/22 Sirena-01/09/22 Moderna Booster 05/05/22 Encounter for sterilization 01/15/2019-bilateral salpingectomy at the time of Anemia affecting , antepartum 12/25/2018 office hemoglobin 8.1. Will offer patient weekly IV sucrose infusion. HX: benign breast biopsy Surgical History History of colonoscopy (~05/2021) normal, repeat 10 years Hx of section (06/25/18) 2010 arrest of descent. M. 01/15/2019 elective scheduled repeat and bilateral salpingectomy [place] teeth extracted H/O dilation and curettage 2007 SAB. 2012 Blighted ovum. Partial molar . No sequelae. Family History Mother Depression Hyperlipidemia Father Celiac disease Maternal Grandfather , late 70s Neoplasm PROSTATE Hyperlipidemia Prostate cancer Colon cancer Pancreatic cancer Paternal Grandfather , 80s Stroke Colon cancer Hyperlipidemia Maternal Grandmother , 89 Essential hypertension Heart disease Stroke Paternal Grandmother , early 80s Essential hypertension History of hip replacement H/O heart valve replacement with porcine valve Hyperlipidemia Son No problems noted. Daughter No problems noted. Social History (Updated 08/21/23 @ 10:51 by Adina Khan) Smoking/Tobacco Use Status: Never Second Hand Exposure: No Smoking risk assessment performed?: Yes Alcohol Intake: current Alcohol Intake frequency: a few times a week Alcohol type: beer and wine Details: 2-4 /month Drug use: Never Substance use type: does not use Caregiver/Support person: No Household members: spouse and children Housing: house Number of Children: 2 Communication Needs: Corrective Lenses Do you need help understanding health information?: Rarely Pets and animals: Yes (2 cats) Pets and animals: cat(s) Sexually active: Yes Do you think of yourself as: straight/heterosexual Current gender identity: female What is your relationship status?: How often do you talk on the phone with friends or family?: three or more times per week How often do you get together with friends or relatives?: once per week How often do you attend yazidi or voodoo services?: 4 or more times per year Do you belong to any clubs or organized social groups?: yes Panel score (0-1 are the most socially isolated patients): 4 What type of physical activity do you participate in: walking, aerobic, bicycling, other Details: dance instrictor @ [place], Pilates and yoga Duration: 15-30 minutes/day Frequency: 3-4 times per week Hazel/Denominational: Yarsanism Special hazel needs: No Seatbelt use: always Helmet use: Yes Drive intox or ride w/intox food service driver: No Do you feel safe at home: Yes Do you feel safe in your relationship?: Yes Female Reproductive History Menstrual control method: permanent sterilization History History 4 Para 1 Hx # Term Pregnancies 1 Multiple births 0 Hx # Pregnancies 0 Ectopic pregnancies 0 AB induced Hx Number of Living Children 1 AB spontaneous 2 Past Pregnancies Del. Date GA/Weeks # Preg Succ Route Wgt Sex Labor Lgth Anesth esia Location [facility] 01/15/19 38 No 8 lb 4 oz Female An nithya Burt Delivery Date: 01/15/19 Last Updated by: Catie Burt M.D. elective scheduled repeat delivery with tubal sterilization. Daughter is named Fela. Time Spent with Patient Time Spent with Patient: <45 minutes Time was spent: preparing to see the patient(eg.review tests), obtaining and/or reviewing separately otained hiistory, indepentently interpreting results, counseling the patient and care coordination
--- NOTE | 2025-07-05 10:29 | W.PM.OP ---
Operative Note Operative Note Refer to Anesthesia Record Procedure Description: Procedures performed: 1. Laparoscopic cholecystectomy 2. Bilateral Laparoscopic TAP block Pre-op diagnosis: Acute Cholecystitis Postoperative diagnosis: Same Surgeon: Monisha Painter Anesthesia: Jaron Hardware Engineering Manager: Jim Indication for procedure: 44-year-old woman with acute RUQ pain in setting of gallstones, Escobedo sign and radiographic signs of cholecystitis FINDINGS: Distended and inflamed GB with palpable stones, pericholecystic fluid in the cystic place and between liver and GB. Normal biliary anatomy. Posterior arterial branch. Specimens: 1. Gallbladder Complications: None Blood loss: 20 cc Urine output: Not measured Implants/drains: None Procedure in detail: Patient gave written consent and was in agreement with the indications, the likely benefits as well as the potential risks of surgery. She was taken back to the operating room where anesthesia was administered and was tolerated well. We positioned the patient supine on the operating room table, arms out and we then prepped and draped in sterile fashion. We confirmed DVT prophylaxis as well as antibiotics had been administered. When we were all in agreement with our timeout we started the procedure. A small stab incision was made within the umbilicus and a 5 mm trocar was used to enter the abdominal cavity. Insufflation was performed which was tolerated well. Under direct visualization I performed a bilateral TAP block with combination of injectable saline, Exparel and Marcaine. 2 more trocars were placed under direct visualization in the right hemiabdomen. Local anesthetic was also given in each of the sites. A 12 mm port was placed in the epigastrium under visualization. The fundus of the gallbladder was grasped and retracted towards the patient's left shoulder cephalad. This nicely exposed the biliary plate and the relevant anatomy. A combination of blunt and electrocautery dissection was performed isolating the cystic duct and the cystic artery. The entire cystic plate was cleared off confirming only 2 structures seen going into the gallbladder (critical view). These were clipped and divided. Posteriorly, a small arterial branch was identified and I also clipped and divided this. I then removed the rest of the gallbladder off the liver bed using electrocautery. It was placed in an Endo Catch bag and removed from the abdominal cavity. The specimen was passed off the back table and placed in formalin. I then checked the gallbladder fossa for any bile leaking or any bleeding. Hemostasis was excellent and there was no evidence of any bile leaking from the bed. The 12 mm port site was then closed with 0 Vicryl in the fascia. I rechecked for hemostasis one last time and it remained excellent. We released pneumoperitoneum. I removed the 5 mm trocars. The skin was closed with running Monocryl and Dermabond was placed on top of each site. The patient tolerated the procedure well. The sponge, instruments and sharps counts were correct x3 at the end of the procedure. He was extubated and taken to the PACU in hemodynamically stable condition. Date of Procedure: 07/05/25
[2025-07-05] MEDS: Lactated Ringers 1,000 ML 30 ML IV (10:33)
[2025-07-05] MEDS: Bupivacaine 0.25% Pres-Free 10 ML VIAL (11:03)
[2025-07-05] MEDS: Bupivacaine LIPOSOME/PF 133 MG/10 ML VIAL IJ (11:03)
[2025-07-05] MEDS: Normal Saline 20 ML VIAL (11:03)
[2025-07-05] MEDS: Bupivacaine 0.25% Pres-Free 30 ML VIAL (11:03)
--- NOTE | 2025-07-05 11:08 | GB_PTH ---
PATIENT: Margareth Suresh LOC: [id number]#:[id number] AGE/SX: 44/F ROOM: [facility] RE07/05/[address]: Kirk Painter : 1980 BED: A DIS: 07/05/2025 SPEC #: [id number] RECD: 07/06/25 12:22 STATUS: RUDY REQ #: [id number] EFREN: 07/05/25 11:[address]: Kirk Painter DEPT: Surgical Specimen RECD BY: Marisol Bird ENTERED: 07/06/25 12:22 SP TYPE: GB YOSHI DR: Jeff Levine, GONZALO Tissues: 1 - GALLBLADDER Procedures: GROSS AND MICRO LEVEL 3 Comments: [id number]
[2025-07-05] MEDS: fentaNYL 100 MCG/2 ML VIAL IVP ×3 (12:13→12:37)
--- NOTE | 2025-07-05 12:44 | W.ANESPOSTOP ---
Postoperative Evaluation Date, Time and Location Date Performed: 07/05/25 Time Performed: 12:44 Patient Location: PACU Vital Signs Most Recent Imported Vital Signs: Most Recent Vital Signs Temp Pulse Resp BP Pulse Ox 36.5 C 55 L 16 116/52 L 100 07/05/25 12:29 07/05/25 12:29 07/05/25 12:29 07/05/25 12:29 07/05/25 12:29 Pain Score Most Recent Pain Score: Most Recent Pain Score Pain Level 8 07/05/25 12:29 Assessment Mental Status: Awake (Alert & Oriented to Patient Baseline) Airway and Respiratory Function: Patent airway with normal (patient baseline) respiratory exam Cardiovascular Function: Hemodynamically Stable Hydration Status: Adequately Hydrated Nausea & Vomiting: No Nausea or Vomiting Pain: Pain is Moderate or Severe Postoperative Pain Management: Pain being addressed with medication and Ongoing pain, patient will be managed as an inpatient Peripheral Nerve Block: Patient did not receive a nerve block Postoperative Comments:: Pt. states pain is better than at admission. Plan is to let her wake up more before receiving additional analgesia which she understands. VS stable and she is calm.
== END 2025-07-05 16:44 | disposition home or self-care (01) ==
LOC: ER 05:15 → MS 10:29
PROVIDERS: Nurse Anesthetist, Certified Registered; Admitting Provider Student in an Organized Health Care Education/Training Program; Emergency Provider Student in an Organized Health Care Education/Training Program; PCP Nurse Practitioner Family; Visit Provider Student in an Organized Health Care Education/Training Program
PROC: 0FT44ZZ Resection of Gallbladder, Percutaneous Endoscopic Approach (ICD-10-PCS; CPT 47562; principal; 2025-07-05 09:20)
DX: K80.12 Calculus of gallbladder with acute and chronic cholecystitis without obstruction (principal); F32.A Depression, unspecified; L30.9 Dermatitis, unspecified; R06.02 Shortness of breath; I83.90 Asymptomatic varicose veins of unspecified lower extremity; F32.81 Premenstrual dysphoric disorder; M25.562 Pain in left knee; R63.5 Abnormal weight gain
CPT/HCPCS: 47562; 36415; 74177; 80053; 93005; 96361; 96365; 96366; 96367; 96372; 96375; 99285; 71260; 81003; 81025; 84484; 85025; 88304; 93010; G0378; J0131; J0665; J0666; J0744; J1100; J1644; J1836; J1885; J2250; J2270; J2405; J2704; J2765; J3010; J3490